=== PATIENT | male | born 1955 | race Caucasian/White ===

== ENCOUNTER 2017-05-05 06:07 | Inpatient (IN) | payer MEDICARE, OTHER ==
[2017-05-05] MEDS ORDERED: Povidone-Iodine 10% Soln 118.25 ML Bottle ONE (06:28)
[2017-05-05] MEDS ORDERED: Thrombin (Bovine) 5,000 Unit Kit ONE ×2 (06:28→08:02)
[2017-05-05] MEDS ORDERED: Lactated Ringers 1,000 ML IV SCH (06:45)
[2017-05-05] MEDS ORDERED: Clindamycin Phosphate 900 MG in Sodium Chloride 0.9% 100 ML IV ONE (06:45)
[2017-05-05] MEDS ORDERED: Succinylcholine/Normal Saline 200 MG/10 ML Syringe ONE (07:10)
[2017-05-05] MEDS ORDERED: fentaNYL 250 MCG/5 ML SDV ONE ×4 (07:10→13:25)
[2017-05-05] MEDS ORDERED: Dexamethasone 4 MG/ML SDV ONE (07:10)
[2017-05-05] MEDS ORDERED: Ondansetron 4 MG/2 ML SDV ONE (07:10)
[2017-05-05] MEDS ORDERED: Neostigmine Methylsulfate 1 MG/ML 5 ML Syringe ONE (07:10)
[2017-05-05] MEDS ORDERED: Rocuronium 50 MG/5 ML Vial ONE ×2 (07:10→08:30)
[2017-05-05] MEDS ORDERED: Propofol 200 MG/20 ML SDV ONE ×3 (07:10→14:02)
[2017-05-05] MEDS ORDERED: Midazolam 1 MG/ML 2 ML SDV ONE (07:12)
[2017-05-05] MEDS ORDERED: Tranexamic Acid 3,000 MG, Sodium Chloride 0.9% 100 ML TOP SCH ×2 (08:00)
[2017-05-05] MEDS ORDERED: Ketamine 500 MG/5 ML MDV IV SCH (08:30)
[2017-05-05] MEDS ORDERED: Lactated Ringers 1,000 ML ONE ×4 (10:01→14:23)
[2017-05-05] MEDS ORDERED: Sodium Chloride 0.9% 500 ML ONE (12:08)
[2017-05-05] MEDS: Ropivacaine 49.25 ML, Ketorolac 30 MG, EPINEPHrine 0.5 MG, cloNIDine 80 MCG, Sodium Chl... INJECT ONE ×10 (15:10→20:30)
[2017-05-05] MEDS ORDERED: Magnesium Hydroxide 400 MG/5 ML Susp 30 ML Cup PO PRN (15:54)
[2017-05-05] MEDS ORDERED: Naloxone 0.4 MG/ML SDV IVPUSH PRN (15:54)
[2017-05-05] MEDS ORDERED: Sennosides 8.6 MG Tab PO PRN (15:54)
[2017-05-05] MEDS ORDERED: Acetaminophen 1,000 MG in Premix Bag 1 BAG IV PRN (15:54)
[2017-05-05] MEDS ORDERED: Bisacodyl 10 MG Supp RECTAL PRN (15:54)
[2017-05-05] MEDS ORDERED: Aluminum Hydroxide/Magnesium Hydroxide/Simethicone Susp 30 ML Cup PO PRN (15:54)
[2017-05-05] MEDS: Dexamethasone 4 MG/ML SDV IVPUSH SCH ×2 (18:50→23:34)
[2017-05-05] MEDS: HYDROmorphone 1 MG/ML Syringe IVPUSH PRN (20:29)
--- NOTE | 2017-05-05 22:40 | OR ---
DATE OF PROCEDURE: 05/05/2017 PREOPERATIVE DIAGNOSIS: Lumbar stenosis L1 through S1. POSTOPERATIVE DIAGNOSIS: Lumbar stenosis L1 through S1. PROCEDURE: 1. Transforaminal lumbar interbody fusion, L1-L2, L2-L3, L3-L4, L4-L5 and L5-S1. 2. Primary laminectomy at L1-L2 and L2-L3. 3. Revision laminectomy L3-L4, L4-L5, and L5-S1. 4. Full facetectomies on the right at L1-L2, L2-L3, L3-L4, L4-L5 and L5-S1. 5. Use of operating microscope. 6. Interbody placement at L1-L2, L2-L3, L3-L4, L4-L5, and L5-S1. 7. Segmental instrumentation L1 through S1. ANESTHESIA: General endotracheal intubation. FLUID: Lactated Ringer solution. ESTIMATED BLOOD LOSS: 2400 mL. COMPLICATIONS: None. SPECIMEN: None. DISCHARGE DISPOSITION: Stable to PACU. INDICATIONS FOR THE PROCEDURE: The patient was seen preoperatively in the clinic. He has had a primary previous L3 through S1 laminectomy. He was found to have not only central stenosis remained most of those levels, but as well as new central stenosis at L1-L2 and L2- L3. He also had right-sided radiculopathy. He had bilateral severe foraminal stenosis, which was worse on the right than the left at L1 through S1. Preoperative imaging confirmed the above-mentioned diagnosis. Risks and benefits of the procedure were explained to the patient. Informed consent was obtained. DETAILS OF PROCEDURE: The patient was seen preoperatively by myself and Anesthesia staff in the preoperative holding area, where the operative site was marked. He was brought to the operative suite by the Anesthesia staff, where general anesthesia was administered. A sterile Johnson catheter was placed. The fluoroscopy unit as well as the operating microscope was draped in a sterile manner. Neuromonitoring leads were placed and found to be normal at baseline. He was then flipped into a supine position on a [place] table. All extremities found to be well padded. The back was then prepped and draped in a sterile manner. Time- out was called identifying the correct patient, the correct procedure, the correct site, and antibiotics had been with appropriate period of time. The fluoroscopy unit was used to identify the pedicles all of L1 through S1 on AP and lateral, and then a midline incision was made over the spinous processes of L1 through S1, although spinous processes were absent at L3, L4, and L5. This was carried down to the fascia. Bleeding was controlled with Bovie electrocautery, bipolar electrocautery and Aquamantys 5.0 unit throughout the case. Deep dissection was carried down over the spinous processes of L1 and L2 with the respective lamina, facets, and transverse processes. I then very carefully dissected down the midline L3 through S1 and then went laterally toward the facets in order to avoid any possible exposed dura. There were several areas throughout the previous laminectomy that were either still present from minimal laminectomy or they had grown back in over the years. The facets and transverse processes were dissected and identified. The 75 mm VersaTREK blades were entered into incision and used for retraction. Bleeding was again controlled, we used FloSeal, thrombin soaked Gelfoam and Surgicel for hemostasis in addition to cautery. I then placed my screws on the left at L1 through S1 and took pictures. The method of which was done as to drill out the facets and then make a starting point, then used the PediGuard Unit followed by pedicle probe, followed by tapping 1.2 mm under followed by pedicle probe again and then screw placement. I then completed this on the right side. The screws were then tested all were found to be a least 25 or above on neuro monitoring. We then did the full laminectomy at L1-2 and L2-3. This was done by removing this spinous processes saving all bone for graft and then using a high-speed drill over the lamina and then removing the lamina en bloc. The remaining facetectomies including the L1-L2 and L2-L3 were done by several different methods depending on what work does. At times, I would go medial and then undercut the lamina and then feel the foramina and then cut out laterally and as much as I could remove the facet en bloc. At other times, I would go from the outside and through the foramina, but in any case, I did do full facetectomies and visualized all the nerve roots at every level. I started at the L4-5 level for interbody placement, the method by which this was done had to use an electrocautery unit down around the superior edge of the pedicle and then identified the disk space using a #7 shaver then protecting the dura enter the disk space with sequential shaving from 7 up to 10, often we would stop at 8. The patient was very stiff during the diskectomies, which were done and very little disk material was removed, which was expected. We inserted our interbody device and then expanded and all antibodies were driven as far as possible to the anterior endplate without breaching the anterior longitudinal ligament. The last interbody place was at L1, this was protected with a #1 [place]. There was an incidental durotomy at the axilla and just caudal to the axilla of the root, where the lateral aspect of the dura meets the anterior part of the dura. There was no cerebrospinal fluid loss, I suspect that part of the arachnoid layer was protecting the nerve roots at that level. We are certainly very lateral and I took care not to retract any medial in order to protect the cauda equina. We did this using the operating microscope and 7-0 Laporte-Warren suture. After the suture closure, I performed a Valsalva, which did not show any cerebrospinal fluid leak. Nevertheless, at the base of the posterior vertebral body, I did place DuraGen and then I placed DuraGen over my sutures and then I placed DuraSeal over this laterally. After this had been completed, I performed another Valsalva and one at the end of the procedure, and there was no cerebrospinal fluid leak. We then focused on preparing for grafting, so we irrigated with 3 L of Betadine infused irrigation. I then decorticated the transverse processes in the facets on the left and then tacked the posterolateral gutters with autograft obtained from the laminectomies as well as spinous processes remaining. Please note that at the L3 through S1 levels, I was able to do a facetectomy by drilling laterally and then elevating the remaining lamina en bloc, this actually aided in the facetectomy as well and looked very good, no durotomy was encountered at those levels. We then placed our 150 mm rods, which I did bend for an increased lordosis and then tightened those down with our nuts. Please note that with the screws placed, we used Creo AMP screws. The screws were placed, so I could distract when in entering the disk space and then I would place a tool upon prior to placement of the bebeto. After all of our locking nuts were torqued to specification, I then took final films, we then closed the deep fascia with #2 locking Vicryl, followed by #2 running Vicryl, followed by another liter of Betadine effused irrigation, followed by a multiple 0 Vicryl interrupted sutures, followed by 2-0 Vicryl interrupted sutures, followed by Monocryl and Dermabond, followed by sterile dressing. The patient was then flipped on to the supine position on hospital bed. Neuromonitoring leads were taken off, they were normal at closing and then transferred to the PACU in stable condition. Dmitry Childress DO /[id number] MTDD
[2017-05-06] MEDS: HYDROmorphone 1 MG/ML Syringe IVPUSH PRN ×5 (03:09→23:48)
[2017-05-06] MEDS: Dexamethasone 4 MG/ML SDV IVPUSH SCH ×3 (04:42→20:25)
[2017-05-06] MEDS ORDERED: Gadoteridol 279.3 MG/ML 20 ML SDV IV SCH (13:00)
--- NOTE | 2017-05-06 13:55 | PCM.PN ---
- General Info Date of Service: 05/06/17 Functional Status: Reports: pain controlled, new symptoms - Review of Systems General: Reports: No Symptoms HEENT: Reports: no symptoms Pulmonary: Reports: no symptoms Cardiovascular: Reports: No Symptoms Gastrointestinal: Reports: No symptoms Genitourinary: Reports: no symptoms Musculoskeletal: Reports: back pain Skin: Reports: no symptoms Neurological: Reports: Numbness, Tingling, Weakness Psychiatric: Reports: no symptoms - Patient Data Vitals - most recent: Last Vital Signs Temp 98.7 F 05/06/17 11:43 Pulse 84 05/06/17 11:43 Resp 16 05/06/17 11:43 BP 132/82 05/06/17 11:43 Pulse Ox 97 05/06/17 11:43 Weight - most recent: 207 lb 12.8 oz I&O - last 24 hours: Intake & Output 05/05/17 05/06/17 05/06/17 22:59 06:59 14:59 Intake Total 280 1080 Output Total 230 285 Balance 50 795 Lab Results last 24 hrs: Laboratory Results - last 24 hr 05/04/17 05/05/17 05/06/17 Range/Units 09:20 16:42 05:09 WBC 12.2 H (4.5-11.0) K/uL RBC 3.47 L (4.30-5.90) M/uL Hgb 10.0 L 9.2 L (12.0-15.0) g/dL Hct 32.3 L 28.2 L (40.0-54.0) % MCV 81 (80-98) fL MCH 27 (27-31) pg MCHC 33 (32-36) % Plt Count 249 (150-400) K/uL Neut % (Auto) 88 H (36-66) % Lymph % (Auto) 5 L (24-44) % [place] % (Auto) 7 H (2-6) % Eos % (Auto) 1 L (2-4) % Baso % (Auto) 0 (0-1) % Sodium (140-148) mmol/L Potassium (3.6-5.2) mmol/L Chloride (100-108) mmol/L Carbon Dioxide (21-32) mmol/L Anion Gap (5.0-14.0) mmol/L BUN (7-18) mg/dL Creatinine (0.8-1.3) mg/dL Est Cr Clr Drug Dosing mL/min Estimated GFR (MDRD) (>60) Glucose (74-106) mg/dL Calcium (8.5-10.1) mg/dL Blood Type A POSITIVE Gel Antibody Screen Negative Crossmatch See Detail 05/06/17 Range/Units 05:09 WBC (4.5-11.0) K/uL RBC (4.30-5.90) M/uL Hgb (12.0-15.0) g/dL Hct (40.0-54.0) % MCV (80-98) fL MCH (27-31) pg MCHC (32-36) % Plt Count (150-400) K/uL Neut % (Auto) (36-66) % Lymph % (Auto) (24-44) % [place] % (Auto) (2-6) % Eos % (Auto) (2-4) % Baso % (Auto) (0-1) % Sodium 135 L (140-148) mmol/L Potassium 4.8 (3.6-5.2) mmol/L Chloride 104 (100-108) mmol/L Carbon Dioxide 22 (21-32) mmol/L Anion Gap 13.8 (5.0-14.0) mmol/L BUN 24 H D (7-18) mg/dL Creatinine 1.6 H (0.8-1.3) mg/dL Est Cr Clr Drug Dosing 54.56 mL/min Estimated GFR (MDRD) 44 L (>60) Glucose 156 H (74-106) mg/dL Calcium 8.2 L (8.5-10.1) mg/dL Blood Type Gel Antibody Screen Crossmatch Med Orders - Current: Current Medications Al Hydroxide/Mg Hydroxide (Mag-Al Plus) 15 ml PO Q4H PRN PRN Reason: Indigestion Bisacodyl (Dulcolax) 10 mg RECTAL DAILY PRN PRN Reason: Constipation Diazepam (Valium) 5 mg IVPUSH Q6H PRN PRN Reason: Spasms Diphenhydramine HCl (Benadryl) 25 mg PO Q4H PRN PRN Reason: Itching Hydromorphone HCl (Dilaudid) 1 mg IVPUSH Q2H PRN PRN Reason: Pain Last Admin: 05/06/17 12:15 Dose: 1 mg Lactated Ringer's (Ringers, Lactated) 1,000 mls @ 0 mls/hr IV ASDIRECTED [facility] PRN Reason: KVO Last Admin: 05/05/17 07:10 Dose: 25 mls/hr Acetaminophen 1,000 mg/ Premix 100 mls @ 400 mls/hr IV Q6H PRN PRN Reason: Pain Stop: 05/06/17 15:55 Last Admin: 05/06/17 00:12 Dose: 400 mls/hr Clindamycin Phosphate 600 mg/ (Sodium Chloride) 54 mls @ 100 mls/hr IV Q8H [facility] Last Admin: 05/06/17 09:05 Dose: 100 mls/hr Magnesium Hydroxide (Milk Of Magnesia) 30 ml PO DAILY PRN PRN Reason: Constipation Naloxone HCl (Narcan) 0.2 mg IVPUSH ASDIRECTED PRN PRN Reason: Oversedation Stop: 05/06/17 15:00 Oxycodone/Acetaminophen (Percocet 325-5 Mg) 1 tab PO Q4H PRN PRN Reason: Pain Senna (Senna) 8.6 mg PO BID PRN PRN Reason: Constipation Zolpidem Tartrate (Ambien) 5 mg PO BEDTIME PRN PRN Reason: Sleep Discontinued Medications Tranexamic Acid 3,000 mg/ (Sodium Chloride 100 ml) 0 mg TOP ASDIRECTED [facility] Stop: 05/05/17 08:01 Last Admin: 05/05/17 09:04 Dose: 120 bag Ropivacaine 49.25 ml/Ketorolac Tromethamine 30 mg/Epinephrine HCl 0.5 mg/ Clonidine HCl 80 mcg/ Sodium Chloride 48.45 ml 0 ml INJECT ONETIME ONE Stop: 05/05/17 14:46 Last Admin: 05/05/17 20:30 Dose: Not Given Dexamethasone (Dexamethasone) Confirm Administered Dose 4 mg .ROUTE .STK-MED ONE Stop: 05/05/17 07:11 Dexamethasone (Dexamethasone) 8 mg IVPUSH Q6H [facility] Stop: 05/06/17 11:01 Last Admin: 05/06/17 04:42 Dose: 8 mg Fentanyl (Sublimaze) Confirm Administered Dose 250 mcg .ROUTE .STK-MED ONE Stop: 05/05/17 07:11 Fentanyl (Sublimaze) Confirm Administered Dose 250 mcg .ROUTE .STK-MED ONE Stop: 05/05/17 08:21 Fentanyl (Sublimaze) Confirm Administered Dose 250 mcg .ROUTE .ST-MED ONE Stop: 05/05/17 11:43 Fentanyl (Sublimaze) Confirm Administered Dose 250 mcg .ROUTE .ST-MED ONE Stop: 05/05/17 13:26 Gadoteridol (Prohance) 20 ml IV . DIRECTED [facility] Stop: 05/06/17 13:01 Last Admin: 05/06/17 13:40 Dose: 20 ml Glycopyrrolate () Confirm Administered Dose 1 mg .ROUTE .ST-MED ONE Stop: 05/05/17 07:11 Clindamycin Phosphate 900 mg/ (Sodium Chloride) 106 mls @ 200 mls/hr IV ONETIME ONE Stop: 05/05/17 07:16 Last Admin: 05/05/17 07:44 Dose: 200 mls/hr Ketamine HCl 100 mg/ Sodium (Chloride) 100 mls @ 22 mls/hr IV ASDIRECTED [facility] Lactated Ringer's (Ringers, Lactated) Confirm Administered Dose 1,000 mls @ as directed .ROUTE .ST-MED ONE Stop: 05/05/17 10:02 Lactated Ringer's (Ringers, Lactated) Confirm Administered Dose 1,000 mls @ as directed .ROUTE .ST-MED ONE Stop: 05/05/17 10:03 Lactated Ringer's (Ringers, Lactated) Confirm Administered Dose 1,000 mls @ as directed .ROUTE .ST-MED ONE Stop: 05/05/17 11:15 Sodium Chloride (Normal Saline) Confirm Administered Dose 500 mls @ as directed .ROUTE .ST-MED ONE Stop: 05/05/17 12:09 Lactated Ringer's (Ringers, Lactated) Confirm Administered Dose 1,000 mls @ as directed .ROUTE .ST-MED ONE Stop: 05/05/17 14:24 Ketamine HCl (Ketalar) 38 mg IV ASDIRECTED [facility] Midazolam HCl (Versed 1 Mg/Ml) Confirm Administered Dose 2 mg .ROUTE .STK-MED ONE Stop: 05/05/17 07:13 Neostigmine Methylsulfate (Neostigmine) Confirm Administered Dose 5 mg .ROUTE .ST-MED ONE Stop: 05/05/17 07:11 Ondansetron HCl (Zofran) Confirm Administered Dose 4 mg .ROUTE .STK-MED ONE Stop: 05/05/17 07:11 Povidone Iodine (Betadine 10% Soln) Confirm Administered Dose 1 ml .ROUTE .STK- MED ONE Stop: 05/05/17 06:29 Last Admin: 05/05/17 14:02 Dose: 1 ml Propofol (Diprivan 20 Ml) Confirm Administered Dose 200 mg .ROUTE .STK-MED ONE Stop: 05/05/17 07:11 Propofol (Diprivan 20 Ml) Confirm Administered Dose 600 mg .ROUTE .STK-MED ONE Stop: 05/05/17 14:03 Propofol (Diprivan 20 Ml) Confirm Administered Dose 600 mg .ROUTE .STK-MED ONE Stop: 05/05/17 14:03 Rocuronium [place] (Zemuron) Confirm Administered Dose 50 mg .ROUTE .STK-MED ONE Stop: 05/05/17 07:11 Rocuronium [place] (Zemuron) Confirm Administered Dose 50 mg .ROUTE .STK-MED ONE Stop: 05/05/17 08:31 Succinylcholine Chloride (Succinylcholine In Ns Pf) Confirm Administered Dose 200 mg .ROUTE .STK-MED ONE Stop: 05/05/17 07:11 Thrombin (Thrombin-Jmi) Confirm Administered Dose 15,000 unit .ROUTE .STK-MED ONE Stop: 05/05/17 06:29 Last Admin: 05/05/17 14:04 Dose: 15,000 unit Thrombin (Thrombin-Jmi) Confirm Administered Dose 15,000 unit .ROUTE .STK-MED ONE Stop: 05/05/17 08:03 Last Admin: 05/05/17 14:04 Dose: 5,000 unit - Exam General: alert, oriented HEENT: Pupils equal, Pupils reactive Back Exam: Paraspinal Tenderness Extremities: no edema Skin: warm, dry, intact Wound/Incisions: healing well, dressing dry and intact, no drainage Neurological: other Psy/Mental Status: alert, normal affect Physical Findings Comments:: RLE: Ankle plantarfexion 4/5, dorsiflexion 3+/5. Gastrocnemius 2/5, hip flexors 2/5,quadriceps 2/5,knee flexors 2/5. Full sensation present in bilateral lower extremities some numbness anterior thigh no saddle anesthesia - Problem List & Annotations (1) Foraminal stenosis of lumbar region SNOMED Code(s): 58093768 Code(s): M99.83 - OTHER BIOMECHANICAL LESIONS OF LUMBAR REGION Status: Acute Current Visit: No (2) Spinal stenosis of lumbar region SNOMED Code(s): 50977780 Code(s): M48.06 - SPINAL STENOSIS, LUMBAR REGION Status: Acute Current Visit: No - Problem List Review Problem List Initiated/Reviewed/Updated: Yes - My Orders Last 24 Hours: My Active Orders 05/05/17 15:54 Patient Status [ADT] Routine Acetaminophen [Ofirmev] 1,000 mg Premix Bag 1 bag IV Q6H Acetaminophen/oxyCODONE [Percocet 325-5 MG] 1 tab PO Q4H PRN Alum Hydrox/Mag Hydrox/Simeth [Mag-Al Plus] 15 ml PO Q4H PRN Bisacodyl [Dulcolax] 10 mg RECTAL DAILY PRN Diazepam [Valium] 5 mg IVPUSH Q6H PRN HYDROmorphone [Dilaudid] 1 mg IVPUSH Q2H PRN Magnesium Hydroxide [Milk of Magnesia] 30 ml PO DAILY PRN Naloxone [Narcan] 0.2 mg IVPUSH ASDIRECTED PRN Sennosides [Senna] 8.6 mg PO BID PRN Zolpidem [Ambien] 5 mg PO BEDTIME PRN diphenhydrAMINE [Benadryl] 25 mg PO Q4H PRN 05/05/17 15:55 Neurovascular Check [RC] Q1H Oxygen Therapy [RC] Q12H Turn, Cough, Deep Breathe [RC] .PRN Encourage Fluids [OM.PC] Routine 05/05/17 16:00 Clindamycin Phosphate [Cleocin] 600 mg Sodium Chloride 0.9% [Normal Saline] 50 ml IV Q8H 05/05/17 16:02 Consult to Physician [CONS] Routine 05/05/17 16:03 Notify Provider Consults [RC] ASDIRECTED 05/06/17 09:07 Lumbar Spine wo Cont [CT] Routine 05/06/17 09:44 Lumbar Spine Comp w wo Cont [MR] Routine 05/07/17 05:15 BASIC METABOLIC PANEL,BMP [CHEM] DAILY CBC WITH AUTO DIFF [HEME] DAILY 07/10/17 05:15 BASIC METABOLIC PANEL,BMP [CHEM] DAILY CBC WITH AUTO DIFF [HEME] DAILY - Plan Plan:: A: POD 1 L1-S1 TLIF. New weakness RLE with full sensation P: continue dexamethasone. Obtained CT which shows no areas of significant stenosis or compression Obtaining MRI with and without contrast. If there is an epidural hematoma present will take back to decompress. If not, will continue with dexamethasone. Spoke with patients significant other regarding cautiously optomistic prognosis of return of motor function. Explained will treat carefully non-operatively at this time and monitor for progress with possible need for adjunct faculty for medical terminology rehab. Patient did state to significant other he felt there was improvement in right foot ROM.
[2017-05-06] MEDS: Acetaminophen/oxyCODONE 325-5 MG Tab PO PRN ×3 (15:01→22:49)
[2017-05-06] MEDS ORDERED: Dexamethasone 4 MG/ML SDV IVPUSH SCH (19:00)
[2017-05-06] MEDS: Zolpidem 5 MG Tab PO PRN (20:32)
[2017-05-07] MEDS: Dexamethasone 4 MG/ML SDV IVPUSH SCH ×4 (01:57→19:47)
[2017-05-07] MEDS: Acetaminophen/oxyCODONE 325-5 MG Tab PO PRN ×4 (04:48→22:31)
[2017-05-07] MEDS: HYDROmorphone 1 MG/ML Syringe IVPUSH PRN ×3 (06:15→20:05)
--- NOTE | 2017-05-07 11:07 | PCM.PN ---
- General Info Date of Service: 05/07/17 Functional Status: Reports: pain controlled, tolerating diet - Review of Systems General: Reports: No Symptoms HEENT: Reports: no symptoms Pulmonary: Reports: no symptoms Cardiovascular: Reports: No Symptoms Gastrointestinal: Reports: No symptoms Genitourinary: Reports: no symptoms Musculoskeletal: Reports: shoulder pain, leg pain Skin: Reports: no symptoms Neurological: Reports: No Symptoms, Numbness, Tingling, Difficulty Walking, Weakness, Gait Disturbance Psychiatric: Reports: no symptoms - Patient Data Vitals - most recent: Last Vital Signs Temp 96.3 F 05/07/17 07:23 Pulse 85 05/07/17 07:23 Resp 16 05/07/17 07:23 BP 137/80 05/07/17 07:23 Pulse Ox 96 05/07/17 07:23 Weight - most recent: 207 lb 12.8 oz I&O - last 24 hours: Intake & Output 05/06/17 05/07/17 05/07/17 22:59 06:59 14:59 Intake Total 1657 320 174 Output Total 2000 4212 625 Balance -245 -2021 -271 Lab Results last 24 hrs: Laboratory Results - last 24 hr 05/07/17 05/07/17 Range/Units 05:30 05:30 WBC 14.8 H (4.5-11.0) K/uL RBC 3.21 L (4.30-5.90) M/uL Hgb 8.4 L (12.0-15.0) g/dL Hct 26.2 L (40.0-54.0) % MCV 82 (80-98) fL MCH 26 L (27-31) pg MCHC 32 (32-36) % Plt Count 282 (150-400) K/uL Neut % (Auto) 91 H (36-66) % Lymph % (Auto) 4 L (24-44) % [place] % (Auto) 5 (2-6) % Eos % (Auto) 0 L (2-4) % Baso % (Auto) 0 (0-1) % Sodium 138 L (140-148) mmol/L Potassium 4.6 (3.6-5.2) mmol/L Chloride 105 (100-108) mmol/L Carbon Dioxide 26 (21-32) mmol/L Anion Gap 11.6 (5.0-14.0) mmol/L BUN 22 H (7-18) mg/dL Creatinine 1.2 (0.8-1.3) mg/dL Est Cr Clr Drug Dosing 72.75 mL/min Estimated GFR (MDRD) > 60 (>60) Glucose 138 H (74-106) mg/dL Calcium 8.8 (8.5-10.1) mg/dL Creatine Kinase 3322 H (39-308) U/L Med Orders - Current: Current Medications Al Hydroxide/Mg Hydroxide (Mag-Al Plus) 15 ml PO Q4H PRN PRN Reason: Indigestion Bisacodyl (Dulcolax) 10 mg RECTAL DAILY PRN PRN Reason: Constipation Dexamethasone (Dexamethasone) 12 mg IVPUSH Q6H [facility] Last Admin: 05/07/17 08:29 Dose: 12 mg Diazepam (Valium) 5 mg IVPUSH Q6H PRN PRN Reason: Spasms Diphenhydramine HCl (Benadryl) 25 mg PO Q4H PRN PRN Reason: Itching Hydromorphone HCl (Dilaudid) 1 mg IVPUSH Q2H PRN PRN Reason: Pain Last Admin: 05/07/17 06:15 Dose: 1 mg Lactated Ringer's (Ringers, Lactated) 1,000 mls @ 0 mls/hr IV ASDIRECTED [facility] PRN Reason: KVO Last Admin: 05/05/17 07:10 Dose: 25 mls/hr Clindamycin Phosphate 600 mg/ (Sodium Chloride) 54 mls @ 100 mls/hr IV Q8H [facility] Last Admin: 05/07/17 08:00 Dose: 100 mls/hr Magnesium Hydroxide (Milk Of Magnesia) 30 ml PO DAILY PRN PRN Reason: Constipation Oxycodone/Acetaminophen (Percocet 325-5 Mg) 1 tab PO Q4H PRN PRN Reason: Pain Last Admin: 05/07/17 10:56 Dose: 1 tab Senna (Senna) 8.6 mg PO BID PRN PRN Reason: Constipation Zolpidem Tartrate (Ambien) 5 mg PO BEDTIME PRN PRN Reason: Sleep Last Admin: 05/06/17 20:32 Dose: 5 mg Discontinued Medications Tranexamic Acid 3,000 mg/ (Sodium Chloride 100 ml) 0 mg TOP ASDIRECTED [facility] Stop: 05/05/17 08:01 Last Admin: 05/05/17 09:04 Dose: 120 bag Ropivacaine 49.25 ml/Ketorolac Tromethamine 30 mg/Epinephrine HCl 0.5 mg/ Clonidine HCl 80 mcg/ Sodium Chloride 48.45 ml 0 ml INJECT ONETIME ONE Stop: 05/05/17 14:46 Last Admin: 05/05/17 20:30 Dose: Not Given Dexamethasone (Dexamethasone) Confirm Administered Dose 4 mg .ROUTE .STK-MED ONE Stop: 05/05/17 07:11 Dexamethasone (Dexamethasone) 8 mg IVPUSH Q6H [facility] Stop: 05/06/17 11:01 Last Admin: 05/06/17 14:17 Dose: 8 mg Dexamethasone (Dexamethasone) 15 mg IVPUSH Q6H [facility] Last Admin: 05/06/17 20:16 Dose: Not Given Fentanyl (Sublimaze) Confirm Administered Dose 250 mcg .ROUTE .STK-MED ONE Stop: 05/05/17 07:11 Fentanyl (Sublimaze) Confirm Administered Dose 250 mcg .ROUTE .STK-MED ONE Stop: 05/05/17 08:21 Fentanyl (Sublimaze) Confirm Administered Dose 250 mcg .ROUTE .STK-MED ONE Stop: 05/05/17 11:43 Fentanyl (Sublimaze) Confirm Administered Dose 250 mcg .ROUTE .STK-MED ONE Stop: 05/05/17 13:26 Gadoteridol (Prohance) 20 ml IV . DIRECTED [facility] Stop: 05/06/17 13:01 Last Admin: 05/06/17 13:40 Dose: 20 ml Glycopyrrolate () Confirm Administered Dose 1 mg .ROUTE .STK-MED ONE Stop: 05/05/17 07:11 Clindamycin Phosphate 900 mg/ (Sodium Chloride) 106 mls @ 200 mls/hr IV ONETIME ONE Stop: 05/05/17 07:16 Last Admin: 05/05/17 07:44 Dose: 200 mls/hr Ketamine HCl 100 mg/ Sodium (Chloride) 100 mls @ 22 mls/hr IV ASDIRECTED [facility] Lactated Ringer's (Ringers, Lactated) Confirm Administered Dose 1,000 mls @ as directed .ROUTE .STK-MED ONE Stop: 05/05/17 10:02 Lactated Ringer's (Ringers, Lactated) Confirm Administered Dose 1,000 mls @ as directed .ROUTE .ST-MED ONE Stop: 05/05/17 10:03 Lactated Ringer's (Ringers, Lactated) Confirm Administered Dose 1,000 mls @ as directed .ROUTE .ST-MED ONE Stop: 05/05/17 11:15 Sodium Chloride (Normal Saline) Confirm Administered Dose 500 mls @ as directed .ROUTE .ST-MED ONE Stop: 05/05/17 12:09 Lactated Ringer's (Ringers, Lactated) Confirm Administered Dose 1,000 mls @ as directed .ROUTE .ST-MED ONE Stop: 05/05/17 14:24 Acetaminophen 1,000 mg/ Premix 100 mls @ 400 mls/hr IV Q6H PRN PRN Reason: Pain Stop: 05/06/17 15:55 Last Admin: 05/06/17 00:12 Dose: 400 mls/hr Ketamine HCl (Ketalar) 38 mg IV ASDIRECTED [facility] Midazolam HCl (Versed 1 Mg/Ml) Confirm Administered Dose 2 mg .ROUTE .ST-MED ONE Stop: 05/05/17 07:13 Naloxone HCl (Narcan) 0.2 mg IVPUSH ASDIRECTED PRN PRN Reason: Oversedation Stop: 05/06/17 15:00 Neostigmine Methylsulfate (Neostigmine) Confirm Administered Dose 5 mg .ROUTE .ST-MED ONE Stop: 05/05/17 07:11 Ondansetron HCl (Zofran) Confirm Administered Dose 4 mg .ROUTE .ST-MED ONE Stop: 05/05/17 07:11 Povidone Iodine (Betadine 10% Soln) Confirm Administered Dose 1 ml .ROUTE .ST- MED ONE Stop: 05/05/17 06:29 Last Admin: 05/05/17 14:02 Dose: 1 ml Propofol (Diprivan 20 Ml) Confirm Administered Dose 200 mg .ROUTE .ST-MED ONE Stop: 05/05/17 07:11 Propofol (Diprivan 20 Ml) Confirm Administered Dose 600 mg .ROUTE .STK-MED ONE Stop: 05/05/17 14:03 Propofol (Diprivan 20 Ml) Confirm Administered Dose 600 mg .ROUTE .STK-MED ONE Stop: 05/05/17 14:03 Rocuronium [place] (Zemuron) Confirm Administered Dose 50 mg .ROUTE .STK-MED ONE Stop: 05/05/17 07:11 Rocuronium [place] (Zemuron) Confirm Administered Dose 50 mg .ROUTE .STK-MED ONE Stop: 05/05/17 08:31 Succinylcholine Chloride (Succinylcholine In Ns Pf) Confirm Administered Dose 200 mg .ROUTE .STK-MED ONE Stop: 05/05/17 07:11 Thrombin (Thrombin-Jmi) Confirm Administered Dose 15,000 unit .ROUTE .STK-MED ONE Stop: 05/05/17 06:29 Last Admin: 05/05/17 14:04 Dose: 15,000 unit Thrombin (Thrombin-Jmi) Confirm Administered Dose 15,000 unit .ROUTE .STK-MED ONE Stop: 05/05/17 08:03 Last Admin: 05/05/17 14:04 Dose: 5,000 unit - Exam General: alert, oriented HEENT: Pupils equal, Pupils reactive Neck: supple Lungs: Clear to auscultation Extremities: no edema Peripheral Pulses: 2+: Dorsalis Pedis (R) Skin: warm, dry, intact Wound/Incisions: healing well, dressing dry and intact, no drainage Neurological: other Psy/Mental Status: alert, normal affect, normal mood - Problem List & Annotations (1) Foraminal stenosis of lumbar region SNOMED Code(s): 58673434 Code(s): M99.83 - OTHER BIOMECHANICAL LESIONS OF LUMBAR REGION Status: Acute Current Visit: No (2) Spinal stenosis of lumbar region SNOMED Code(s): 00913524 Code(s): M48.06 - SPINAL STENOSIS, LUMBAR REGION Status: Acute Current Visit: No - Problem List Review Problem List Initiated/Reviewed/Updated: Yes - My Orders Last 24 Hours: My Active Orders 05/06/17 20:00 Dexamethasone 12 mg IVPUSH Q6H 05/06/17 Dinner Regular Diet [DIET] 05/07/17 11:00 OT Evaluation and Treatment [CONS] Routine PT Evaluation and Treatment [CONS] Routine 05/08/17 05:15 BASIC METABOLIC PANEL,BMP [CHEM] DAILY CBC WITH AUTO DIFF [HEME] DAILY CREATINE KINASE,CK [CHEM] DAILY - Plan Plan:: A: POD 2 L1-S1 TLIF. Stronger last evening and unchanged since then P: continue dexamethasone. MRI showed no areas of suspected epidural hematoma. Explained to patient and significant other after reviewing and receiving report yesterday. Spoke with patients significant other and patient regarding cautiously optomistic prognosis of return of motor function. Explained will treat carefully non-operatively at this time and monitor for progress with possible need for layer off rehab. Elevated bed in room. Will try to get in chair today and stand with walker. Bedside commode. PT/OT. Will start 325 mg asa tomorrow for dvt prophylaxis.
--- NOTE | 2017-05-07 12:23 | PCM.PN ---
- General Info Date of Service: 05/07/17 Functional Status: Denies: pain controlled, ambulating - Review of Systems Pulmonary: Denies: shortness of breath Musculoskeletal: Reports: leg pain (right thigh and posterior leg ) Systems Review Comment:: Misael was admitted for a lumbar laminectomy to manage lumbar spinal stenosis. Postoperatively he has had some difficulty with right leg weakness and this morning his CK level was noted to be elevated at 3300. He reports pain in the right leg that radiates to the knee. He is able to wiggle his toes and move his ankle but cannot flex his hip or his knee. CT and MRI yesterday did not show acute pathology. No complaints of shortness of breath. No fevers. - Patient Data Vitals - most recent: Last Vital Signs Temp 36.1 C 05/07/17 12:03 Pulse 88 05/07/17 12:03 Resp 16 05/07/17 12:03 BP 137/83 05/07/17 12:03 Pulse Ox 98 05/07/17 12:03 Weight - most recent: 94.256 kg I&O - last 24 hours: Intake & Output 05/06/17 05/07/17 05/07/17 22:59 06:59 14:59 Intake Total 1657 320 190 Output Total 2000 1500 625 Balance -877 -1826 -187 Lab Results last 24 hrs: Laboratory Results - last 24 hr 05/07/17 05/07/17 Range/Units 05:30 05:30 WBC 14.8 H (4.5-11.0) K/uL RBC 3.21 L (4.30-5.90) M/uL Hgb 8.4 L (12.0-15.0) g/dL Hct 26.2 L (40.0-54.0) % MCV 82 (80-98) fL MCH 26 L (27-31) pg MCHC 32 (32-36) % Plt Count 282 (150-400) K/uL Neut % (Auto) 91 H (36-66) % Lymph % (Auto) 4 L (24-44) % [place] % (Auto) 5 (2-6) % Eos % (Auto) 0 L (2-4) % Baso % (Auto) 0 (0-1) % Sodium 138 L (140-148) mmol/L Potassium 4.6 (3.6-5.2) mmol/L Chloride 105 (100-108) mmol/L Carbon Dioxide 26 (21-32) mmol/L Anion Gap 11.6 (5.0-14.0) mmol/L BUN 22 H (7-18) mg/dL Creatinine 1.2 (0.8-1.3) mg/dL Est Cr Clr Drug Dosing 72.75 mL/min Estimated GFR (MDRD) > 60 (>60) Glucose 138 H (74-106) mg/dL Calcium 8.8 (8.5-10.1) mg/dL Creatine Kinase 3322 H (39-308) U/L Med Orders - Current: Current Medications Al Hydroxide/Mg Hydroxide (Mag-Al Plus) 15 ml PO Q4H PRN PRN Reason: Indigestion Bisacodyl (Dulcolax) 10 mg RECTAL DAILY PRN PRN Reason: Constipation Dexamethasone (Dexamethasone) 12 mg IVPUSH Q6H [facility] Last Admin: 05/07/17 08:29 Dose: 12 mg Diazepam (Valium) 5 mg IVPUSH Q6H PRN PRN Reason: Spasms Diphenhydramine HCl (Benadryl) 25 mg PO Q4H PRN PRN Reason: Itching Gabapentin (Neurontin) 300 mg PO TID [facility] Hydromorphone HCl (Dilaudid) 1 mg IVPUSH Q2H PRN PRN Reason: Pain Last Admin: 05/07/17 06:15 Dose: 1 mg Lactated Ringer's (Ringers, Lactated) 1,000 mls @ 0 mls/hr IV ASDIRECTED [facility] PRN Reason: KVO Last Admin: 05/05/17 07:10 Dose: 25 mls/hr Clindamycin Phosphate 600 mg/ (Sodium Chloride) 54 mls @ 100 mls/hr IV Q8H [facility] Last Admin: 05/07/17 08:00 Dose: 100 mls/hr Magnesium Hydroxide (Milk Of Magnesia) 30 ml PO DAILY PRN PRN Reason: Constipation Oxycodone/Acetaminophen (Percocet 325-5 Mg) 1 tab PO Q4H PRN PRN Reason: Pain Last Admin: 05/07/17 10:56 Dose: 1 tab Senna (Senna) 8.6 mg PO BID PRN PRN Reason: Constipation Zolpidem Tartrate (Ambien) 5 mg PO BEDTIME PRN PRN Reason: Sleep Last Admin: 05/06/17 20:32 Dose: 5 mg Discontinued Medications Tranexamic Acid 3,000 mg/ (Sodium Chloride 100 ml) 0 mg TOP ASDIRECTED [facility] Stop: 05/05/17 08:01 Last Admin: 05/05/17 09:04 Dose: 120 bag Ropivacaine 49.25 ml/Ketorolac Tromethamine 30 mg/Epinephrine HCl 0.5 mg/ Clonidine HCl 80 mcg/ Sodium Chloride 48.45 ml 0 ml INJECT ONETIME ONE Stop: 05/05/17 14:46 Last Admin: 05/05/17 20:30 Dose: Not Given Dexamethasone (Dexamethasone) Confirm Administered Dose 4 mg .ROUTE .STK-MED ONE Stop: 05/05/17 07:11 Dexamethasone (Dexamethasone) 8 mg IVPUSH Q6H [facility] Stop: 05/06/17 11:01 Last Admin: 05/06/17 14:17 Dose: 8 mg Dexamethasone (Dexamethasone) 15 mg IVPUSH Q6H [facility] Last Admin: 05/06/17 20:16 Dose: Not Given Fentanyl (Sublimaze) Confirm Administered Dose 250 mcg .ROUTE .STK-MED ONE Stop: 05/05/17 07:11 Fentanyl (Sublimaze) Confirm Administered Dose 250 mcg .ROUTE .STK-MED ONE Stop: 05/05/17 08:21 Fentanyl (Sublimaze) Confirm Administered Dose 250 mcg .ROUTE .STK-MED ONE Stop: 05/05/17 11:43 Fentanyl (Sublimaze) Confirm Administered Dose 250 mcg .ROUTE .STK-MED ONE Stop: 05/05/17 13:26 Gadoteridol (Prohance) 20 ml IV . DIRECTED [facility] Stop: 05/06/17 13:01 Last Admin: 05/06/17 13:40 Dose: 20 ml Glycopyrrolate () Confirm Administered Dose 1 mg .ROUTE .STK-MED ONE Stop: 05/05/17 07:11 Clindamycin Phosphate 900 mg/ (Sodium Chloride) 106 mls @ 200 mls/hr IV ONETIME ONE Stop: 05/05/17 07:16 Last Admin: 05/05/17 07:44 Dose: 200 mls/hr Ketamine HCl 100 mg/ Sodium (Chloride) 100 mls @ 22 mls/hr IV ASDIRECTED [facility] Lactated Ringer's (Ringers, Lactated) Confirm Administered Dose 1,000 mls @ as directed .ROUTE .STK-MED ONE Stop: 05/05/17 10:02 Lactated Ringer's (Ringers, Lactated) Confirm Administered Dose 1,000 mls @ as directed .ROUTE .STK-MED ONE Stop: 05/05/17 10:03 Lactated Ringer's (Ringers, Lactated) Confirm Administered Dose 1,000 mls @ as directed .ROUTE .STK-MED ONE Stop: 05/05/17 11:15 Sodium Chloride (Normal Saline) Confirm Administered Dose 500 mls @ as directed .ROUTE .STK-MED ONE Stop: 05/05/17 12:09 Lactated Ringer's (Ringers, Lactated) Confirm Administered Dose 1,000 mls @ as directed .ROUTE .STK-MED ONE Stop: 05/05/17 14:24 Acetaminophen 1,000 mg/ Premix 100 mls @ 400 mls/hr IV Q6H PRN PRN Reason: Pain Stop: 05/06/17 15:55 Last Admin: 05/06/17 00:12 Dose: 400 mls/hr Ketamine HCl (Ketalar) 38 mg IV ASDIRECTED [facility] Midazolam HCl (Versed 1 Mg/Ml) Confirm Administered Dose 2 mg .ROUTE .STK-MED ONE Stop: 05/05/17 07:13 Naloxone HCl (Narcan) 0.2 mg IVPUSH ASDIRECTED PRN PRN Reason: Oversedation Stop: 05/06/17 15:00 Neostigmine Methylsulfate (Neostigmine) Confirm Administered Dose 5 mg .ROUTE .STK-MED ONE Stop: 05/05/17 07:11 Ondansetron HCl (Zofran) Confirm Administered Dose 4 mg .ROUTE .STK-MED ONE Stop: 05/05/17 07:11 Povidone Iodine (Betadine 10% Soln) Confirm Administered Dose 1 ml .ROUTE .STK- MED ONE Stop: 05/05/17 06:29 Last Admin: 05/05/17 14:02 Dose: 1 ml Propofol (Diprivan 20 Ml) Confirm Administered Dose 200 mg .ROUTE .STK-MED ONE Stop: 05/05/17 07:11 Propofol (Diprivan 20 Ml) Confirm Administered Dose 600 mg .ROUTE .STK-MED ONE Stop: 05/05/17 14:03 Propofol (Diprivan 20 Ml) Confirm Administered Dose 600 mg .ROUTE .STK-MED ONE Stop: 05/05/17 14:03 Rocuronium [place] (Zemuron) Confirm Administered Dose 50 mg .ROUTE .STK-MED ONE Stop: 05/05/17 07:11 Rocuronium [place] (Zemuron) Confirm Administered Dose 50 mg .ROUTE .STK-MED ONE Stop: 05/05/17 08:31 Succinylcholine Chloride (Succinylcholine In Ns Pf) Confirm Administered Dose 200 mg .ROUTE .STK-MED ONE Stop: 05/05/17 07:11 Thrombin (Thrombin-Jmi) Confirm Administered Dose 15,000 unit .ROUTE .STK-MED ONE Stop: 05/05/17 06:29 Last Admin: 05/05/17 14:04 Dose: 15,000 unit Thrombin (Thrombin-Jmi) Confirm Administered Dose 15,000 unit .ROUTE .STK-MED ONE Stop: 05/05/17 08:03 Last Admin: 05/05/17 14:04 Dose: 5,000 unit - Exam Quality Assessment: No: supplemental oxygen General: alert, oriented, cooperative, mild distress Neck: supple Lungs: Normal respiratory effort Cardiovascular: Regular Rate, Regular Rhythm Abdomen: soft, no distension Extremities: no edema, no cyanosis Skin: warm, dry Neurological: other (can move right leg at ankle and toes but cannot flex right hip or flex right knee on his own ) Psy/Mental Status: alert, normal affect - Problem List Review Problem List Initiated/Reviewed/Updated: Yes - My Orders Last 24 Hours: My Active Orders 05/07/17 12:30 Lactated Ringers [Ringers, Lactated] 1,000 ml IV ASDIRECTED Lactated Ringers [Ringers, Lactated] 1,000 ml IV ASDIRECTED - Plan Plan:: Assessment and plan - Lumbar spinal stenosis status post laminectomy - postop day 2 with residual right leg weakness. CT and MRI reassuring yesterday. -Postoperative cares per orthopedic team Elevated CK level - likely represents mild rhabdomyolysis which is probably traumatic and related to the surgery and the duration of the surgery. He would benefit from some additional fluids to help reduce the risk of kidney injury. Kidney function currently normal. -Lactated Ringer's bolus followed by continuous infusion overnight -Repeat CK and creatinine in the morning Thomas Angulo M.D.
[2017-05-07] MEDS ORDERED: Lactated Ringers 1,000 ML IV SCH (12:30)
[2017-05-07] MEDS: Gabapentin 300 MG Cap PO SCH ×2 (13:06→20:07)
[2017-05-07] MEDS ORDERED: Levofloxacin/Dextrose 5%-Water 150 ML IV SCH (17:00)
[2017-05-07] MEDS: Zolpidem 5 MG Tab PO PRN (22:31)
[2017-05-07] MEDS: Lactated Ringers 1,000 ML IV SCH (22:34)
[2017-05-08] MEDS: Dexamethasone 4 MG/ML SDV IVPUSH SCH ×3 (01:58→13:45)
[2017-05-08] MEDS: Lactated Ringers 1,000 ML IV SCH ×2 (03:44→10:34)
[2017-05-08] MEDS: Acetaminophen/oxyCODONE 325-5 MG Tab PO PRN ×4 (05:55→23:43)
[2017-05-08] MEDS: Gabapentin 300 MG Cap PO SCH ×3 (08:20→21:16)
--- NOTE | 2017-05-08 12:22 | PCM.PN ---
- General Info Date of Service: 05/08/17 Functional Status: Reports: pain controlled, tolerating diet, urinating - Review of Systems General: Reports: Weakness. Denies: Fever, Chills Pulmonary: Reports: no symptoms Cardiovascular: Reports: No Symptoms Gastrointestinal: Reports: No symptoms Neurological: Reports: Difficulty Walking, Weakness (Right leg) Systems Review Comment:: Mr. Slater has been stable since yesterday, vital signs have been within good range and he has remained afebrile. Continues to experience significant weakness in his right leg although does seem to be modestly improved since surgery. Kidney function has remained stable and his CK level has improved from yesterday. - Patient Data Vitals - most recent: Last Vital Signs Temp 97.1 F 05/08/17 10:47 Pulse 90 05/08/17 10:47 Resp 16 05/08/17 10:47 BP 120/74 05/08/17 10:47 Pulse Ox 97 05/08/17 10:47 Weight - most recent: 207 lb 12.8 oz I&O - last 24 hours: Intake & Output 05/07/17 05/08/17 05/08/17 22:59 06:59 14:59 Intake Total 1757 2248 Output Total 650 2800 1450 Balance 1107 -552 -1450 Lab Results last 24 hrs: Laboratory Results - last 24 hr 05/08/17 05/08/17 Range/Units 05:35 05:35 WBC 14.4 H (4.5-11.0) K/uL RBC 3.13 L (4.30-5.90) M/uL Hgb 8.1 L (12.0-15.0) g/dL Hct 25.8 L (40.0-54.0) % MCV 82 (80-98) fL MCH 26 L (27-31) pg MCHC 31 L (32-36) % Plt Count 278 (150-400) K/uL Neut % (Auto) 91 H (36-66) % Lymph % (Auto) 4 L (24-44) % [place] % (Auto) 5 (2-6) % Eos % (Auto) 0 L (2-4) % Baso % (Auto) 0 (0-1) % Sodium 138 L (140-148) mmol/L Potassium 4.6 (3.6-5.2) mmol/L Chloride 106 (100-108) mmol/L Carbon Dioxide 26 (21-32) mmol/L Anion Gap 10.6 (5.0-14.0) mmol/L BUN 23 H (7-18) mg/dL Creatinine 1.0 (0.8-1.3) mg/dL Est Cr Clr Drug Dosing 87.30 mL/min Estimated GFR (MDRD) > 60 (>60) Glucose 127 H (74-106) mg/dL Calcium 8.9 (8.5-10.1) mg/dL Creatine Kinase 2778 H (39-308) U/L Med Orders - Current: Current Medications Al Hydroxide/Mg Hydroxide (Mag-Al Plus) 15 ml PO Q4H PRN PRN Reason: Indigestion Bisacodyl (Dulcolax) 10 mg RECTAL DAILY PRN PRN Reason: Constipation Dexamethasone (Dexamethasone) 12 mg IVPUSH Q6H [facility] Last Admin: 05/08/17 08:20 Dose: 12 mg Diazepam (Valium) 5 mg IVPUSH Q6H PRN PRN Reason: Spasms Diphenhydramine HCl (Benadryl) 25 mg PO Q4H PRN PRN Reason: Itching Gabapentin (Neurontin) 300 mg PO TID [facility] Last Admin: 05/08/17 08:20 Dose: 300 mg Hydromorphone HCl (Dilaudid) 1 mg IVPUSH Q2H PRN PRN Reason: Pain Last Admin: 05/07/17 20:05 Dose: 1 mg Levofloxacin/Dextrose 750 mg/ (Premix) 150 mls @ 100 mls/hr IV Q24H [facility] Magnesium Hydroxide (Milk Of Magnesia) 30 ml PO DAILY PRN PRN Reason: Constipation Last Admin: 05/08/17 08:35 Dose: 30 ml Oxycodone/Acetaminophen (Percocet 325-5 Mg) 1 tab PO Q4H PRN PRN Reason: Pain Last Admin: 05/08/17 05:55 Dose: 1 tab Senna (Senna) 8.6 mg PO BID PRN PRN Reason: Constipation Zolpidem Tartrate (Ambien) 5 mg PO BEDTIME PRN PRN Reason: Sleep Last Admin: 05/07/17 22:31 Dose: 5 mg Discontinued Medications Tranexamic Acid 3,000 mg/ (Sodium Chloride 100 ml) 0 mg TOP ASDIRECTED [facility] Stop: 05/05/17 08:01 Last Admin: 05/05/17 09:04 Dose: 120 bag Ropivacaine 49.25 ml/Ketorolac Tromethamine 30 mg/Epinephrine HCl 0.5 mg/ Clonidine HCl 80 mcg/ Sodium Chloride 48.45 ml 0 ml INJECT ONETIME ONE Stop: 05/05/17 14:46 Last Admin: 05/05/17 20:30 Dose: Not Given Dexamethasone (Dexamethasone) Confirm Administered Dose 4 mg .ROUTE .ST[facility]-MED ONE Stop: 05/05/17 07:11 Dexamethasone (Dexamethasone) 8 mg IVPUSH Q6H [facility] Stop: 05/06/17 11:01 Last Admin: 05/06/17 14:17 Dose: 8 mg Dexamethasone (Dexamethasone) 15 mg IVPUSH Q6H [facility] Last Admin: 05/06/17 20:16 Dose: Not Given Fentanyl (Sublimaze) Confirm Administered Dose 250 mcg .ROUTE .STK-MED ONE Stop: 05/05/17 07:11 Fentanyl (Sublimaze) Confirm Administered Dose 250 mcg .ROUTE .STK-MED ONE Stop: 05/05/17 08:21 Fentanyl (Sublimaze) Confirm Administered Dose 250 mcg .ROUTE .STK-MED ONE Stop: 05/05/17 11:43 Fentanyl (Sublimaze) Confirm Administered Dose 250 mcg .ROUTE .STK-MED ONE Stop: 05/05/17 13:26 Gadoteridol (Prohance) 20 ml IV . DIRECTED [facility] Stop: 05/06/17 13:01 Last Admin: 05/06/17 13:40 Dose: 20 ml Glycopyrrolate () Confirm Administered Dose 1 mg .ROUTE .STK-MED ONE Stop: 05/05/17 07:11 Clindamycin Phosphate 900 mg/ (Sodium Chloride) 106 mls @ 200 mls/hr IV ONETIME ONE Stop: 05/05/17 07:16 Last Admin: 05/05/17 07:44 Dose: 200 mls/hr Lactated Ringer's (Ringers, Lactated) 1,000 mls @ 0 mls/hr IV ASDIRECTED [facility] PRN Reason: KVO Last Admin: 05/05/17 07:10 Dose: 25 mls/hr Ketamine HCl 100 mg/ Sodium (Chloride) 100 mls @ 22 mls/hr IV ASDIRECTED [facility] Lactated Ringer's (Ringers, Lactated) Confirm Administered Dose 1,000 mls @ as directed .ROUTE .[facility] ONE Stop: 05/05/17 10:02 Lactated Ringer's (Ringers, Lactated) Confirm Administered Dose 1,000 mls @ as directed .ROUTE .[facility] ONE Stop: 05/05/17 10:03 Lactated Ringer's (Ringers, Lactated) Confirm Administered Dose 1,000 mls @ as directed .ROUTE .[facility] ONE Stop: 05/05/17 11:15 Sodium Chloride (Normal Saline) Confirm Administered Dose 500 mls @ as directed .ROUTE .[facility] ONE Stop: 05/05/17 12:09 Lactated Ringer's (Ringers, Lactated) Confirm Administered Dose 1,000 mls @ as directed .ROUTE .[facility] ONE Stop: 05/05/17 14:24 Acetaminophen 1,000 mg/ Premix 100 mls @ 400 mls/hr IV Q6H PRN PRN Reason: Pain Stop: 05/06/17 15:55 Last Admin: 05/06/17 00:12 Dose: 400 mls/hr Clindamycin Phosphate 600 mg/ (Sodium Chloride) 54 mls @ 100 mls/hr IV Q8H [facility] Last Admin: 05/07/17 17:47 Dose: Not Given Lactated Ringer's (Ringers, Lactated) 1,000 mls @ 500 mls/hr IV ASDIRECTED [facility] Stop: 05/07/17 13:31 Lactated Ringer's (Ringers, Lactated) 1,000 mls @ 150 mls/hr IV ASDIRECTED [facility] Last Admin: 05/08/17 10:34 Dose: 150 mls/hr Levofloxacin/Dextrose (Levaquin In D5w 750 Mg/150 Ml) 150 mls @ 100 mls/hr IV Q24H [facility] Last Admin: 05/07/17 16:57 Dose: 100 mls/hr Ketamine HCl (Ketalar) 38 mg IV ASDIRECTED [facility] Midazolam HCl (Versed 1 Mg/Ml) Confirm Administered Dose 2 mg .ROUTE .[facility] ONE Stop: 05/05/17 07:13 Naloxone HCl (Narcan) 0.2 mg IVPUSH ASDIRECTED PRN PRN Reason: Oversedation Stop: 05/06/17 15:00 Neostigmine Methylsulfate (Neostigmine) Confirm Administered Dose 5 mg .ROUTE .[facility] ONE Stop: 05/05/17 07:11 Ondansetron HCl (Zofran) Confirm Administered Dose 4 mg .ROUTE .[facility] ONE Stop: 05/05/17 07:11 Povidone Iodine (Betadine 10% Soln) Confirm Administered Dose 1 ml .ROUTE .[facility] ONE Stop: 05/05/17 06:29 Last Admin: 05/05/17 14:02 Dose: 1 ml Propofol (Diprivan 20 Ml) Confirm Administered Dose 200 mg .ROUTE .[facility] ONE Stop: 05/05/17 07:11 Propofol (Diprivan 20 Ml) Confirm Administered Dose 600 mg .ROUTE .[facility] ONE Stop: 05/05/17 14:03 Propofol (Diprivan 20 Ml) Confirm Administered Dose 600 mg .ROUTE .[facility] ONE Stop: 05/05/17 14:03 Rocuronium [place] (Zemuron) Confirm Administered Dose 50 mg .ROUTE .[facility] ONE Stop: 05/05/17 07:11 Rocuronium [place] (Zemuron) Confirm Administered Dose 50 mg .ROUTE .[facility] ONE Stop: 05/05/17 08:31 Succinylcholine Chloride (Succinylcholine In Ns Pf) Confirm Administered Dose 200 mg .ROUTE .[facility] ONE Stop: 05/05/17 07:11 Thrombin (Thrombin-Jmi) Confirm Administered Dose 15,000 unit .ROUTE .[facility] ONE Stop: 05/05/17 06:29 Last Admin: 05/05/17 14:04 Dose: 15,000 unit Thrombin (Thrombin-Jmi) Confirm Administered Dose 15,000 unit .ROUTE .[facility] ONE Stop: 05/05/17 08:03 Last Admin: 05/05/17 14:04 Dose: 5,000 unit - Exam Quality Assessment: DVT prophylaxis General: alert, oriented, cooperative, mild distress Lungs: Clear to auscultation, Normal respiratory effort Cardiovascular: Regular Rate, Regular Rhythm, No Murmurs Abdomen: bowel sounds present, soft, no tenderness, no distension Extremities: no edema Skin: warm, dry, intact - Problem List Review Problem List Initiated/Reviewed/Updated: Yes - My Orders Last 24 Hours: My Active Orders 05/08/17 12:30 Lactated Ringers [Ringers, Lactated] 1,000 ml IV ASDIRECTED 05/09/17 05:00 BASIC METABOLIC PANEL,BMP [CHEM] Timed CBC WITH AUTO DIFF [HEME] Timed CREATINE KINASE,CK [CHEM] Timed - Plan Plan:: Assessment and plan - Lumbar spinal stenosis status post laminectomy - postop day 2 with residual right leg weakness. CT and MRI reassuring -Postoperative cares per orthopedic team Elevated CK level - likely represents mild rhabdomyolysis which is probably traumatic and related to the surgery and the duration of the surgery. Renal function has remained stable and CK level has improved modestly -Decrease LR IV rate to 75 mL/h -Repeat CK and creatinine in the morning
[2017-05-08] MEDS ORDERED: Lactated Ringers 1,000 ML IV SCH (12:30)
[2017-05-08] MEDS: Aspirin 325 MG Tab.EC PO SCH (17:05)
[2017-05-08] MEDS: Levofloxacin/Dextrose 5%-Water 750 MG in Premix Bag 1 BAG IV SCH (17:05)
[2017-05-08] MEDS: Zolpidem 5 MG Tab PO PRN (21:20)
[2017-05-09] MEDS: diphenhydrAMINE 25 MG Cap PO PRN ×2 (00:32→21:03)
[2017-05-09] MEDS: HYDROmorphone 1 MG/ML Syringe IVPUSH PRN (03:44)
[2017-05-09] MEDS: Aspirin 325 MG Tab.EC PO SCH (08:47)
[2017-05-09] MEDS: Gabapentin 300 MG Cap PO SCH ×3 (08:47→21:03)
[2017-05-09] MEDS: Acetaminophen/oxyCODONE 325-5 MG Tab PO PRN ×3 (08:53→21:03)
[2017-05-09] MEDS: Iron PS Complex & Vit B12/FA Cap PO SCH (16:10)
[2017-05-09] MEDS: Levofloxacin/Dextrose 5%-Water 750 MG in Premix Bag 1 BAG IV SCH (16:10)
--- NOTE | 2017-05-09 19:23 | PCM.PN ---
- General Info Functional Status: Reports: pain controlled, tolerating diet, urinating - Review of Systems General: Reports: No Symptoms HEENT: Reports: no symptoms Pulmonary: Reports: no symptoms Cardiovascular: Reports: No Symptoms Gastrointestinal: Reports: No symptoms Genitourinary: Reports: no symptoms Musculoskeletal: Reports: back pain, leg pain Skin: Reports: other Neurological: Reports: Numbness, Paresthesia, Difficulty Walking, Weakness Psychiatric: Reports: no symptoms - Patient Data Vitals - most recent: Last Vital Signs Temp 97.4 F 05/09/17 18:46 Pulse 96 05/09/17 18:46 Resp 18 05/09/17 18:46 BP 130/65 05/09/17 18:46 Pulse Ox 97 05/09/17 18:46 Weight - most recent: 207 lb 12.8 oz I&O - last 24 hours: Intake & Output 05/09/17 05/09/17 05/09/17 06:59 14:59 22:59 Intake Total 1958 1417 150 Output Total 2100 875 900 Balance -142 542 -750 Lab Results last 24 hrs: Laboratory Results - last 24 hr 05/04/17 05/09/17 05/09/17 Range/Units 09:20 04:32 04:32 WBC 11.0 (4.5-11.0) K/uL RBC 3.04 L (4.30-5.90) M/uL Hgb 7.9 L (12.0-15.0) g/dL Hct 25.2 L (40.0-54.0) % MCV 83 (80-98) fL MCH 26 L (27-31) pg MCHC 31 L (32-36) % Plt Count 284 (150-400) K/uL Neut % (Auto) 87 H (36-66) % Lymph % (Auto) 6 L (24-44) % [place] % (Auto) 7 H (2-6) % Eos % (Auto) 0 L (2-4) % Baso % (Auto) 0 (0-1) % Sodium 139 L (140-148) mmol/L Potassium 4.1 (3.6-5.2) mmol/L Chloride 104 (100-108) mmol/L Carbon Dioxide 28 (21-32) mmol/L Anion Gap 11.1 (5.0-14.0) mmol/L BUN 24 H (7-18) mg/dL Creatinine 1.1 (0.8-1.3) mg/dL Est Cr Clr Drug Dosing 79.36 mL/min Estimated GFR (MDRD) > 60 (>60) Glucose 144 H (74-106) mg/dL Calcium 8.8 (8.5-10.1) mg/dL Creatine Kinase 1724 H (39-308) U/L Blood Type A POSITIVE Gel Antibody Screen Negative Crossmatch See Detail Med Orders - Current: Current Medications Al Hydroxide/Mg Hydroxide (Mag-Al Plus) 15 ml PO Q4H PRN PRN Reason: Indigestion Aspirin (Ecotrin) 325 mg PO DAILY [facility] Last Admin: 05/09/17 08:47 Dose: 325 mg Bisacodyl (Dulcolax) 10 mg RECTAL DAILY PRN PRN Reason: Constipation Last Admin: 05/08/17 12:46 Dose: 10 mg Carisoprodol (Soma) 350 mg PO BEDTIME [facility] Diazepam (Valium) 5 mg IVPUSH Q6H PRN PRN Reason: Spasms Last Admin: 05/09/17 16:07 Dose: 5 mg Diphenhydramine HCl (Benadryl) 25 mg PO Q4H PRN PRN Reason: Itching Last Admin: 05/09/17 00:32 Dose: 25 mg Gabapentin (Neurontin) 300 mg PO TID [facility] Last Admin: 05/09/17 14:06 Dose: 300 mg Hydromorphone HCl (Dilaudid) 1 mg IVPUSH Q2H PRN PRN Reason: Pain Last Admin: 05/09/17 03:44 Dose: 1 mg Levofloxacin/Dextrose 750 mg/ (Premix) 150 mls @ 100 mls/hr IV Q24H [facility] Last Admin: 05/09/17 16:10 Dose: 100 mls/hr Magnesium Hydroxide (Milk Of Magnesia) 30 ml PO DAILY PRN PRN Reason: Constipation Last Admin: 05/08/17 08:35 Dose: 30 ml Oxycodone/Acetaminophen (Percocet 325-5 Mg) 1 tab PO Q4H PRN PRN Reason: Pain Last Admin: 05/09/17 17:01 Dose: 1 tab Polysaccharide Iron Complex (Ferrex 150 Forte) 1 cap PO BIDMEALS [facility] Last Admin: 05/09/17 16:10 Dose: 1 cap Senna (Senna) 8.6 mg PO BID PRN PRN Reason: Constipation Zolpidem Tartrate (Ambien) 5 mg PO BEDTIME PRN PRN Reason: Sleep Last Admin: 05/08/17 21:20 Dose: 5 mg Discontinued Medications Tranexamic Acid 3,000 mg/ (Sodium Chloride 100 ml) 0 mg TOP ASDIRECTED [facility] Stop: 05/05/17 08:01 Last Admin: 05/05/17 09:04 Dose: 120 bag Ropivacaine 49.25 ml/Ketorolac Tromethamine 30 mg/Epinephrine HCl 0.5 mg/ Clonidine HCl 80 mcg/ Sodium Chloride 48.45 ml 0 ml INJECT ONETIME ONE Stop: 05/05/17 14:46 Last Admin: 05/05/17 20:30 Dose: Not Given Dexamethasone (Dexamethasone) Confirm Administered Dose 4 mg .ROUTE .STK-MED ONE Stop: 05/05/17 07:11 Dexamethasone (Dexamethasone) 8 mg IVPUSH Q6H [facility] Stop: 05/06/17 11:01 Last Admin: 05/06/17 14:17 Dose: 8 mg Dexamethasone (Dexamethasone) 15 mg IVPUSH Q6H [facility] Last Admin: 05/06/17 20:16 Dose: Not Given Dexamethasone (Dexamethasone) 12 mg IVPUSH Q6H [facility] Last Admin: 05/08/17 13:45 Dose: 12 mg Fentanyl (Sublimaze) Confirm Administered Dose 250 mcg .ROUTE .STK-MED ONE Stop: 05/05/17 07:11 Fentanyl (Sublimaze) Confirm Administered Dose 250 mcg .ROUTE .STK-MED ONE Stop: 05/05/17 08:21 Fentanyl (Sublimaze) Confirm Administered Dose 250 mcg .ROUTE .STK-MED ONE Stop: 05/05/17 11:43 Fentanyl (Sublimaze) Confirm Administered Dose 250 mcg .ROUTE .STK-MED ONE Stop: 05/05/17 13:26 Gadoteridol (Prohance) 20 ml IV . DIRECTED [facility] Stop: 05/06/17 13:01 Last Admin: 05/06/17 13:40 Dose: 20 ml Glycopyrrolate () Confirm Administered Dose 1 mg .ROUTE .STK-MED ONE Stop: 05/05/17 07:11 Clindamycin Phosphate 900 mg/ (Sodium Chloride) 106 mls @ 200 mls/hr IV ONETIME ONE Stop: 05/05/17 07:16 Last Admin: 05/05/17 07:44 Dose: 200 mls/hr Lactated Ringer's (Ringers, Lactated) 1,000 mls @ 0 mls/hr IV ASDIRECTED [facility] PRN Reason: KVO Last Admin: 05/05/17 07:10 Dose: 25 mls/hr Ketamine HCl 100 mg/ Sodium (Chloride) 100 mls @ 22 mls/hr IV ASDIRECTED [facility] Lactated Ringer's (Ringers, Lactated) Confirm Administered Dose 1,000 mls @ as directed .ROUTE .[facility]-MED ONE Stop: 05/05/17 10:02 Lactated Ringer's (Ringers, Lactated) Confirm Administered Dose 1,000 mls @ as directed .ROUTE .[facility] ONE Stop: 05/05/17 10:03 Lactated Ringer's (Ringers, Lactated) Confirm Administered Dose 1,000 mls @ as directed .ROUTE .[facility] ONE Stop: 05/05/17 11:15 Sodium Chloride (Normal Saline) Confirm Administered Dose 500 mls @ as directed .ROUTE .[facility] ONE Stop: 05/05/17 12:09 Lactated Ringer's (Ringers, Lactated) Confirm Administered Dose 1,000 mls @ as directed .ROUTE .[facility] ONE Stop: 05/05/17 14:24 Acetaminophen 1,000 mg/ Premix 100 mls @ 400 mls/hr IV Q6H PRN PRN Reason: Pain Stop: 05/06/17 15:55 Last Admin: 05/06/17 00:12 Dose: 400 mls/hr Clindamycin Phosphate 600 mg/ (Sodium Chloride) 54 mls @ 100 mls/hr IV Q8H [facility] Last Admin: 05/07/17 17:47 Dose: Not Given Lactated Ringer's (Ringers, Lactated) 1,000 mls @ 500 mls/hr IV ASDIRECTED [facility] Stop: 05/07/17 13:31 Lactated Ringer's (Ringers, Lactated) 1,000 mls @ 150 mls/hr IV ASDIRECTED [facility] Last Admin: 05/08/17 10:34 Dose: 150 mls/hr Levofloxacin/Dextrose (Levaquin In D5w 750 Mg/150 Ml) 150 mls @ 100 mls/hr IV Q24H [facility] Last Admin: 05/07/17 16:57 Dose: 100 mls/hr Lactated Ringer's (Ringers, Lactated) 1,000 mls @ 75 mls/hr IV ASDIRECTED [facility] Last Admin: 05/08/17 23:06 Dose: 75 mls/hr Ketamine HCl (Ketalar) 38 mg IV ASDIRECTED [facility] Midazolam HCl (Versed 1 Mg/Ml) Confirm Administered Dose 2 mg .ROUTE .ST[facility]-MED ONE Stop: 05/05/17 07:13 Naloxone HCl (Narcan) 0.2 mg IVPUSH ASDIRECTED PRN PRN Reason: Oversedation Stop: 05/06/17 15:00 Neostigmine Methylsulfate (Neostigmine) Confirm Administered Dose 5 mg .ROUTE .ST[facility]-MED ONE Stop: 05/05/17 07:11 Ondansetron HCl (Zofran) Confirm Administered Dose 4 mg .ROUTE .STK-MED ONE Stop: 05/05/17 07:11 Povidone Iodine (Betadine 10% Soln) Confirm Administered Dose 1 ml .ROUTE .STK- MED ONE Stop: 05/05/17 06:29 Last Admin: 05/05/17 14:02 Dose: 1 ml Propofol (Diprivan 20 Ml) Confirm Administered Dose 200 mg .ROUTE .STK-MED ONE Stop: 05/05/17 07:11 Propofol (Diprivan 20 Ml) Confirm Administered Dose 600 mg .ROUTE .STK-MED ONE Stop: 05/05/17 14:03 Propofol (Diprivan 20 Ml) Confirm Administered Dose 600 mg .ROUTE .STK-MED ONE Stop: 05/05/17 14:03 Rocuronium [place] (Zemuron) Confirm Administered Dose 50 mg .ROUTE .STK-MED ONE Stop: 05/05/17 07:11 Rocuronium [place] (Zemuron) Confirm Administered Dose 50 mg .ROUTE .STK-MED ONE Stop: 05/05/17 08:31 Succinylcholine Chloride (Succinylcholine In Ns Pf) Confirm Administered Dose 200 mg .ROUTE .STK-MED ONE Stop: 05/05/17 07:11 Thrombin (Thrombin-Jmi) Confirm Administered Dose 15,000 unit .ROUTE .STK-MED ONE Stop: 05/05/17 06:29 Last Admin: 05/05/17 14:04 Dose: 15,000 unit Thrombin (Thrombin-Jmi) Confirm Administered Dose 15,000 unit .ROUTE .STK-MED ONE Stop: 05/05/17 08:03 Last Admin: 05/05/17 14:04 Dose: 5,000 unit - Exam General: alert, oriented HEENT: Pupils equal, Pupils reactive, EOMI Neck: supple Skin: warm, dry, intact Wound/Incisions: healing well, dressing dry and intact Neurological: no new focal deficit Psy/Mental Status: alert, normal affect Physical Findings Comments:: Pt is now able to log roll rle on own. Decreased pain in right lower extremity. Decreased back pain. Almost antigravity on hip flexors and knee flexors. Definite improvement. Johnson out and urinating well without difficulty. Ambulating a few steps with knee brace and walker. Does well putting weight on rle but difficult moving rle forward during gait. - Problem List & Annotations (1) Foraminal stenosis of lumbar region SNOMED Code(s): 91199432 Code(s): M99.83 - OTHER BIOMECHANICAL LESIONS OF LUMBAR REGION Status: Chronic Current Visit: No (2) Spinal stenosis of lumbar region SNOMED Code(s): 88960859 Code(s): M48.06 - SPINAL STENOSIS, LUMBAR REGION Status: Chronic Current Visit: No - Problem List Review Problem List Initiated/Reviewed/Updated: Yes - My Orders Last 24 Hours: My Active Orders 05/09/17 12:19 Convert IV to Saline Lock [OM.PC] Routine - Plan Plan:: A: POD 4 L1-S1 TLIF with residual rle weakness which is very slowly but progressively improving P: continue PT/OT. Started ASA 325 mg daily for dvt prophylaxis Levoquin started yesterday IV as preventative measure for possible CSF leak. CSF leak risk seen as minimal due to lack of ABDI, photophobia, kernig's sign, as well as lack of abundant clear drainage. Daily dressing change (has been minimal drainage thus far) Pt had form made by Brandon at [facility] today in the clinic. Anticipate brace ready in 2 weeks for RLE. Continue daily exercises per PT. Will switch to oral levaquin for two weeks at [place] Will plan on 2 week f/u after discharge.
[2017-05-10] MEDS: Acetaminophen/oxyCODONE 325-5 MG Tab PO PRN ×2 (03:09→07:19)
[2017-05-10 07:13] VITALS: BP 128/90
[2017-05-10] MEDS: Iron PS Complex & Vit B12/FA Cap PO SCH (07:20)
[2017-05-10] MEDS: Aspirin 325 MG Tab.EC PO SCH (08:19)
[2017-05-10] MEDS: Gabapentin 300 MG Cap PO SCH (08:19)
--- NOTE | 2017-06-08 08:52 | PCM.DCSUM1 ---
Discharge Summary - Discharge Data Discharge Date: 06/10/17 Discharge Disposition: DC/Tfer to [facility] Condition: Fair - Patient Summary/Data Consults: Consultations 05/05/17 16:02 Consult to Physician [CONS] Routine Consulting Provider: Thomas Angulo Call Completed to Consulting Physician: mary 05/07/17 11:00 OT Evaluation and Treatment [CONS] Routine Please Evaluate and Treat. OT Reason for Consult: Strengthening This query below is only for informational purposes and is not editable. Admission Diagnosis/Problem: Lumbar radiculopathy PT Evaluation and Treatment [CONS] Routine Please Evaluate and Treat. PT Reason for Consult: Strengthening This query below is only for informational purposes and is not editable. Admission Diagnosis/Problem: Lumbar radiculopathy - Patient Instructions Diet: Usual Diet as Tolerated Activity: As Tolerated, Cough & Deep Breathe, Full Weight Bearing, No Strenuous Activities Driving: Do Not Drive Showering/Bathing: May Shower Wound/Incision Care: Keep Operative Site/Wound Site Clean and Dry, Change Dressing Daily Notify Provider of: Fever, Increased Pain, Swelling and Redness, Drainage, Nausea and/or Vomiting - Discharge Plan Prescriptions/Med Rec: Iron PS Complex & Vit B12/FA [Ferrex 150 Forte] 1 cap PO BIDMEALS #60 cap Levofloxacin [Levaquin] 750 mg PO Q24H #14 tablet Home Medications: Home Meds Carisoprodol [Soma] 350 mg PO TID 10/19/16 [History] Omeprazole Magnesium [Prilosec Otc] 20 mg PO DAILY 04/20/17 [History] Polyethylene Glycol 3350 [MiraLAX] 17 gm PO DAILY 05/05/17 [History] Levofloxacin [Levaquin] 750 mg PO Q24H #14 tablet 05/09/17 [Rx] Iron PS Complex & Vit B12/FA [Ferrex 150 Forte] 1 cap PO BIDMEALS #60 cap [Rx] Acetaminophen/oxyCODONE [Percocet 325-5 MG] 1 tab PO Q4H PRN 05/20/17 [History] Aspirin [Ecotrin] 81 mg PO DAILY 05/20/17 [History] Ibuprofen [Ibuprofen] 800 mg PO BID 05/20/17 [History] Melatonin 1 tab PO BEDTIME 05/22/17 [History] oxyCODONE HCl/Acetaminophen [Percocet 10-325 mg Tablet] 1 tab PO Q4H PRN [History] Patient Handouts: Spinal Fusion, Care After, Gabapentin capsules or tablets Referrals: Dmitry Chlidress DO [Physician] - - Discharge Summary/Plan Comment DC Time >30 min.: Yes Discharge Summary/Plan Comment: Misael Slater is a pleasant 62-year-old male who is status post postop day 3 of a lumbar fusion of L1-S1. He is doing very well. He is ambulatory without any difficulties. He has no pain at this time. Assessment: Patient does have equal strength in bilateral lower extremities. No pain upon palpation. Incision is clean and intact at this time. Distal motor and sensory examinations grossly intact. Plan: At this time patient will follow up with orthopedic clinic in one month. We will send him home with Percocet and Valium at this time. Patient will wear his brace daily. He'll notify us if he has any other questions. - Patient Data Vitals - Most Recent: Last Vital Signs Temp 36.2 C 05/10/17 07:11 Pulse 67 05/10/17 07:11 Resp 20 05/10/17 07:11 BP 128/90 05/10/17 07:11 Pulse Ox 98 05/10/17 07:11 Weight - Most Recent: 207 lb 12.8 oz Med Orders - Current: Current Medications Discontinued Medications Al Hydroxide/Mg Hydroxide (Mag-Al Plus) 15 ml PO Q4H PRN PRN Reason: Indigestion Aspirin (Ecotrin) 325 mg PO DAILY [facility] Last Admin: 05/10/17 08:19 Dose: 325 mg Bisacodyl (Dulcolax) 10 mg RECTAL DAILY PRN PRN Reason: Constipation Last Admin: 05/08/17 12:46 Dose: 10 mg Carisoprodol (Soma) 350 mg PO BEDTIME SHALINI Last Admin: 05/09/17 21:03 Dose: 350 mg Tranexamic Acid 3,000 mg/ (Sodium Chloride 100 ml) 0 mg TOP ASDIRECTED [facility] Stop: 05/05/17 08:01 Last Admin: 05/05/17 09:04 Dose: 120 bag Ropivacaine 49.25 ml/Ketorolac Tromethamine 30 mg/Epinephrine HCl 0.5 mg/ Clonidine HCl 80 mcg/ Sodium Chloride 48.45 ml 0 ml INJECT ONETIME ONE Stop: 05/05/17 14:46 Last Admin: 05/05/17 20:30 Dose: Not Given Dexamethasone (Dexamethasone) Confirm Administered Dose 4 mg .ROUTE .STK-MED ONE Stop: 05/05/17 07:11 Dexamethasone (Dexamethasone) 8 mg IVPUSH Q6H [facility] Stop: 05/06/17 11:01 Last Admin: 05/06/17 14:17 Dose: 8 mg Dexamethasone (Dexamethasone) 15 mg IVPUSH Q6H [facility] Last Admin: 05/06/17 20:16 Dose: Not Given Dexamethasone (Dexamethasone) 12 mg IVPUSH Q6H [facility] Last Admin: 05/08/17 13:45 Dose: 12 mg Diazepam (Valium) 5 mg IVPUSH Q6H PRN PRN Reason: Spasms Last Admin: 05/09/17 16:07 Dose: 5 mg Diphenhydramine HCl (Benadryl) 25 mg PO Q4H PRN PRN Reason: Itching Last Admin: 05/09/17 21:03 Dose: 25 mg Fentanyl (Sublimaze) Confirm Administered Dose 250 mcg .ROUTE .STK-MED ONE Stop: 05/05/17 07:11 Fentanyl (Sublimaze) Confirm Administered Dose 250 mcg .ROUTE .STK-MED ONE Stop: 05/05/17 08:21 Fentanyl (Sublimaze) Confirm Administered Dose 250 mcg .ROUTE .STK-MED ONE Stop: 05/05/17 11:43 Fentanyl (Sublimaze) Confirm Administered Dose 250 mcg .ROUTE .STK-MED ONE Stop: 05/05/17 13:26 Gabapentin (Neurontin) 300 mg PO TID [facility] Last Admin: 05/10/17 08:19 Dose: 300 mg Gadoteridol (Prohance) 20 ml IV . DIRECTED [facility] Stop: 05/06/17 13:01 Last Admin: 05/06/17 13:40 Dose: 20 ml Glycopyrrolate () Confirm Administered Dose 1 mg .ROUTE .STK-MED ONE Stop: 05/05/17 07:11 Hydromorphone HCl (Dilaudid) 1 mg IVPUSH Q2H PRN PRN Reason: Pain Last Admin: 05/09/17 03:44 Dose: 1 mg Clindamycin Phosphate 900 mg/ (Sodium Chloride) 106 mls @ 200 mls/hr IV ONETIME ONE Stop: 05/05/17 07:16 Last Admin: 05/05/17 07:44 Dose: 200 mls/hr Lactated Ringer's (Ringers, Lactated) 1,000 mls @ 0 mls/hr IV ASDIRECTED SHALINI PRN Reason: KVO Last Admin: 05/05/17 07:10 Dose: 25 mls/hr Ketamine HCl 100 mg/ Sodium (Chloride) 100 mls @ 22 mls/hr IV ASDIRECTED [facility] Lactated Ringer's (Ringers, Lactated) Confirm Administered Dose 1,000 mls @ as directed .ROUTE .ST-MED ONE Stop: 05/05/17 10:02 Lactated Ringer's (Ringers, Lactated) Confirm Administered Dose 1,000 mls @ as directed .ROUTE .[facility] ONE Stop: 05/05/17 10:03 Lactated Ringer's (Ringers, Lactated) Confirm Administered Dose 1,000 mls @ as directed .ROUTE .[facility] ONE Stop: 05/05/17 11:15 Sodium Chloride (Normal Saline) Confirm Administered Dose 500 mls @ as directed .ROUTE .ST-MED ONE Stop: 05/05/17 12:09 Lactated Ringer's (Ringers, Lactated) Confirm Administered Dose 1,000 mls @ as directed .ROUTE .ST-MED ONE Stop: 05/05/17 14:24 Acetaminophen 1,000 mg/ Premix 100 mls @ 400 mls/hr IV Q6H PRN PRN Reason: Pain Stop: 05/06/17 15:55 Last Admin: 05/06/17 00:12 Dose: 400 mls/hr Clindamycin Phosphate 600 mg/ (Sodium Chloride) 54 mls @ 100 mls/hr IV Q8H SHALIN[facility] Last Admin: 05/07/17 17:47 Dose: Not Given Lactated Ringer's (Ringers, Lactated) 1,000 mls @ 500 mls/hr IV ASDIRECTED [facility] Stop: 05/07/17 13:31 Lactated Ringer's (Ringers, Lactated) 1,000 mls @ 150 mls/hr IV ASDIRECTED [facility] Last Admin: 05/08/17 10:34 Dose: 150 mls/hr Levofloxacin/Dextrose (Levaquin In D5w 750 Mg/150 Ml) 150 mls @ 100 mls/hr IV Q24H [facility] Last Admin: 05/07/17 16:57 Dose: 100 mls/hr Levofloxacin/Dextrose 750 mg/ (Premix) 150 mls @ 100 mls/hr IV Q24H [facility] Last Admin: 05/09/17 16:10 Dose: 100 mls/hr Lactated Ringer's (Ringers, Lactated) 1,000 mls @ 75 mls/hr IV ASDIRECTED [facility] Last Admin: 05/08/17 23:06 Dose: 75 mls/hr Ketamine HCl (Ketalar) 38 mg IV ASDIRECTED [facility] Magnesium Hydroxide (Milk Of Magnesia) 30 ml PO DAILY PRN PRN Reason: Constipation Last Admin: 05/08/17 08:35 Dose: 30 ml Midazolam HCl (Versed 1 Mg/Ml) Confirm Administered Dose 2 mg .ROUTE .STK-MED ONE Stop: 05/05/17 07:13 Naloxone HCl (Narcan) 0.2 mg IVPUSH ASDIRECTED PRN PRN Reason: Oversedation Stop: 05/06/17 15:00 Neostigmine Methylsulfate (Neostigmine) Confirm Administered Dose 5 mg .ROUTE .STK-MED ONE Stop: 05/05/17 07:11 Ondansetron HCl (Zofran) Confirm Administered Dose 4 mg .ROUTE .STK-MED ONE Stop: 05/05/17 07:11 Oxycodone/Acetaminophen (Percocet 325-5 Mg) 1 tab PO Q4H PRN PRN Reason: Pain Last Admin: 05/10/17 07:19 Dose: 1 tab Polysaccharide Iron Complex (Ferrex 150 Forte) 1 cap PO BIDMEALS [facility] Last Admin: 05/10/17 07:20 Dose: 1 cap Povidone Iodine (Betadine 10% Soln) Confirm Administered Dose 1 ml .ROUTE .STK- MED ONE Stop: 05/05/17 06:29 Last Admin: 05/05/17 14:02 Dose: 1 ml Propofol (Diprivan 20 Ml) Confirm Administered Dose 200 mg .ROUTE .STK-MED ONE Stop: 05/05/17 07:11 Propofol (Diprivan 20 Ml) Confirm Administered Dose 600 mg .ROUTE .STK-MED ONE Stop: 05/05/17 14:03 Propofol (Diprivan 20 Ml) Confirm Administered Dose 600 mg .ROUTE .STK-MED ONE Stop: 05/05/17 14:03 Rocuronium [place] (Zemuron) Confirm Administered Dose 50 mg .ROUTE .STK-MED ONE Stop: 05/05/17 07:11 Rocuronium [place] (Zemuron) Confirm Administered Dose 50 mg .ROUTE .STK-MED ONE Stop: 05/05/17 08:31 Senna (Senna) 8.6 mg PO BID PRN PRN Reason: Constipation Succinylcholine Chloride (Succinylcholine In Ns Pf) Confirm Administered Dose 200 mg .ROUTE .STK-MED ONE Stop: 05/05/17 07:11 Thrombin (Thrombin-Jmi) Confirm Administered Dose 15,000 unit .ROUTE .STK-MED ONE Stop: 05/05/17 06:29 Last Admin: 05/05/17 14:04 Dose: 15,000 unit Thrombin (Thrombin-Jmi) Confirm Administered Dose 15,000 unit .ROUTE .STK-MED ONE Stop: 05/05/17 08:03 Last Admin: 05/05/17 14:04 Dose: 5,000 unit Zolpidem Tartrate (Ambien) 5 mg PO BEDTIME PRN PRN Reason: Sleep Last Admin: 05/08/17 21:20 Dose: 5 mg *Q Meaningful Use (DIS) - VTE *Q VTE Criteria *Q: - Stroke *Q Stroke Criteria *Q: - AMI *Q AMI Criteria *Q:
== END 2017-05-10 11:15 | DRG 459 ==
LOC: JP.SDS 06:07 → JP.MS 06:07 → EDSTATUS 08:15 → JP.MS 15:54
PROVIDERS: ADMIT Orthopaedic Surgery; ATTEND Orthopaedic Surgery
PROC: 00QT0ZZ Repair Spinal Meninges, Open Approach (ICD-10-PCS; principal; 2017-05-05)
PROC: 0SH004Z Insertion of Internal Fixation Device into Lumbar Vertebral Joint, Open Approach (ICD-10-PCS; principal; 2017-05-05)
PROC: 0QB00ZZ Excision of Lumbar Vertebra, Open Approach (ICD-10-PCS; principal; 2017-05-05)
PROC: 30233N1 Transfusion of Nonautologous Red Blood Cells into Peripheral Vein, Percutaneous Approach (ICD-10-PCS; principal; 2017-05-05)
PROC: 0SG10AJ Fusion of 2 or more Lumbar Vertebral Joints with Interbody Fusion Device, Posterior Approach, Anterior Column, Open Approach (ICD-10-PCS; principal; 2017-05-05)
DX: M48.06 Spinal stenosis, lumbar region (principal); G95.19 Other vascular myelopathies; M62.82 Rhabdomyolysis; M54.16 Radiculopathy, lumbar region; Z87.820 Personal history of traumatic brain injury; K21.9 Gastro-esophageal reflux disease without esophagitis; I25.2 Old myocardial infarction; I25.10 Atherosclerotic heart disease of native coronary artery without angina pectoris; Z87.891 Personal history of nicotine dependence; Z79.82 Long term (current) use of aspirin; Z88.1 Allergy status to other antibiotic agents
CPT/HCPCS: 36415; 36430; 72131; 72158; 76001; 80048; 82550; 85014; 85018; 85025; 86850; 86900; 86901; 86920; 86922; 94762; 97110-GP; 97112-GP; 97116-GP; 97162-GP; 97165-GO; 97530-GP; 97535-GP; A9270-GY; A9576; C1713; J0131; J1100; J1170; J1956; J2250; J2405; J2704; J2795; J3010; J3360; J7030; J7040; J7050; J7120; P9016; S0077

== ENCOUNTER 2017-05-20 08:41 | Emergency (ER) | payer MEDICARE, OTHER ==
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
[2017-05-20] MEDS ORDERED: diphenhydrAMINE 50 MG/ML SDV IVPUSH ONE (09:57)
[2017-05-20] MEDS: Sodium Chloride 0.9% 10 ML Syringe FLUSH PRN ×3 (10:10→11:02)
[2017-05-20] MEDS ORDERED: LORazepam 2 MG/ML MDV IVPUSH ONE (10:34)
[2017-05-20 10:46] VITALS: BP 144/49
[2017-05-20] MEDS ORDERED: HYDROmorphone 0.5 MG/0.5 ML Syringe IVPUSH ONE (10:57)
== END 2017-05-20 12:29 | disposition home or self-care (01) ==
LOC: JP.ED 08:41
DX: I48.91 Unspecified atrial fibrillation (principal); I25.2 Old myocardial infarction; K21.9 Gastro-esophageal reflux disease without esophagitis; F32.9 Major depressive disorder, single episode, unspecified; M19.90 Unspecified osteoarthritis, unspecified site; Z98.890 Other specified postprocedural states; Z79.82 Long term (current) use of aspirin; Z79.899 Other long term (current) drug therapy; Z88.1 Allergy status to other antibiotic agents
CPT/HCPCS: 96374; 96375; 99283; J1170; J1200; J2060; J7050; 99281

== ENCOUNTER 2017-07-10 20:19 | Emergency (ER) | payer MEDICARE, OTHER ==
[2017-07-10 20:54] VITALS: BP 152/73
[2017-07-10] MEDS ORDERED: Furosemide 20 MG Tab PO ONE (22:28)
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
== END 2017-07-10 22:44 | disposition home or self-care (01) ==
LOC: JP.ED 20:19
DX: R60.0 Localized edema (principal); D64.9 Anemia, unspecified; I25.2 Old myocardial infarction; K21.9 Gastro-esophageal reflux disease without esophagitis; M19.90 Unspecified osteoarthritis, unspecified site; F32.9 Major depressive disorder, single episode, unspecified; Z98.890 Other specified postprocedural states; Z79.899 Other long term (current) drug therapy; Z79.82 Long term (current) use of aspirin; Z88.1 Allergy status to other antibiotic agents
CPT/HCPCS: 36415; 80053; 83880; 85025; 99283; 99284; A9270

== ENCOUNTER 2017-08-13 19:15 | Observation (INO) | payer MEDICARE, OTHER ==
[2017-08-13] MEDS ORDERED: Acetaminophen 325 MG Tab PO ONE (19:45)
[2017-08-13] MEDS ORDERED: Sodium Chloride 0.9% 1,000 ML IV STA (19:45)
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
[2017-08-13] MEDS ORDERED: Levofloxacin/Dextrose 5%-Water 750 MG in Premix Bag 1 BAG IV ONE (21:26)
[2017-08-13] MEDS ORDERED: Acetaminophen/HYDROcodone 325-10 MG Tab PO PRN (22:09)
[2017-08-13] MEDS ORDERED: Sodium Chloride 0.9% 1,000 ML IV SCH (22:15)
[2017-08-13] MEDS ORDERED: Levofloxacin/Dextrose 5%-Water 750 MG in Premix Bag 1 BAG IV SCH (22:30)
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
[2017-08-14] MEDS ORDERED: Pantoprazole 40 MG Tab.CR PO SCH (07:30)
[2017-08-14] MEDS ORDERED: OMEPRAZOLE 20MG (PTOM) PO SCH (08:30)
[2017-08-14] MEDS ORDERED: Furosemide 20 MG Tab (PTOM) PO SCH (09:00)
[2017-08-14] MEDS ORDERED: Gabapentin 300 MG Cap PO SCH (09:00)
[2017-08-14] MEDS ORDERED: Sodium Ferric Gluconate Cmplex 250 MG in Sodium Chloride 0.9% 100 ML IV ONE (10:00)
--- NOTE | 2017-08-14 10:52 | PCM.DCSUM1 ---
Discharge Summary - Hospital Course Brief History: Mr. Slater is a 62-year-old gentleman who was admitted through the emergency department with microcytic anemia and probable pneumonia. - Discharge Data Discharge Date: 08/14/17 Discharge Disposition: Home, Self-Care 01 Condition: Fair - Discharge Diagnosis/Problem(s) (1) Pneumonia SNOMED Code(s): 707128425 ICD Code: J18.9 - PNEUMONIA, UNSPECIFIED ORGANISM Status: Acute Current Visit: Yes (2) Anemia SNOMED Code(s): 230895246 ICD Code: D64.9 - ANEMIA, UNSPECIFIED Status: Acute Current Visit: Yes - Patient Summary/Data Hospital Course: Mr. Slater is a 62-year-old gentleman who presented to the emergency department because of weakness and shortness of breath. On evaluation was found to have a hemoglobin of 7.3 and was also felt to have probable pneumonia. He is status post previous spinal surgery. Since that time has had ongoing difficulty with anemia, iron levels have remained low despite oral iron supplementation. He also was noted to be febrile and felt to have probable left lung infiltrate on chest x-ray. Blood cultures were obtained and he was started on IV antibiotic therapy with levofloxacin. He was given IV fluids for hydration after admission and transfused 2 units of red blood cells. Following morning his hemoglobin had come up to 8.8. Iron levels were obtained following admission and found to be low. Was recommended that he stay at least one additional day for further IV antibiotics and monitoring of hemoglobin. He refused this recommendation and request that he be discharged to home. He will except IV iron infusion prior to discharge. Activity will be as tolerated and he will resume his usual diet. Follow-up appointment will be scheduled with his primary care provider within one week and hemoglobin should be obtained at the time of follow-up appointment. I've recommended that he undergo upper and lower endoscopy for further evaluation of his anemia once he is recovered from his respiratory tract infection. He will be discharged on oral antibiotic therapy with levofloxacin for an additional 7 days. He should return immediately to the emergency department if he notes black tarry stools or red blood in the stool, recurrent weakness, persistent fevers, or respiratory compromise. - Patient Instructions Diet: Usual Diet as Tolerated, No Alcoholic Beverages Activity: As Tolerated Other/Special Instructions: Please schedule follow-up appointment with Dr. Waggoner within one week. Hemoglobin level should be checked at the time of follow -up appointment. - Discharge Plan Prescriptions/Med Rec: Levofloxacin [Levaquin] 750 mg PO Q24H #7 tablet Home Medications: Home Meds Carisoprodol [Soma] 350 mg PO TID 10/19/16 [History] Aspirin [Ecotrin] 81 mg PO DAILY 05/20/17 [History] Ibuprofen 800 mg PO BID 05/20/17 [History] Gabapentin [Neurontin] 300 mg PO TID 07/06/17 [History] Hydrocodone/Acetaminophen [Hydrocodon-Acetaminophn 10-325] 1 tab PO Q8H PRN 09/15 [History] Omeprazole 20 mg PO DAILY 07/10/17 [History] diphenhydrAMINE [Benadryl] 25 mg PO BEDTIME 07/10/17 [History] Ferrous Sulfate 1 tab PO TID 08/13/17 [History] Furosemide [Lasix] 1 tab PO DAILY 08/13/17 [History] Levofloxacin [Levaquin] 750 mg PO Q24H #7 tablet 08/14/17 [Rx] Referrals: Manish Waggoner MD [Primary Care Provider] - - Patient Data Vitals - Most Recent: Last Vital Signs Temp 99.1 F 08/14/17 06:15 Pulse 87 08/14/17 06:15 Resp 18 08/14/17 06:15 BP 135/64 08/14/17 06:15 Pulse Ox 100 08/14/17 06:15 Weight - Most Recent: 221 lb 4.8 oz I&O - Last 24 hours: Intake & Output 08/13/17 08/14/17 08/14/17 22:59 06:59 14:59 Intake Total 1103 360 Output Total 1500 800 Balance -397 -440 Lab Results - Last 24 hrs: Laboratory Results - last 24 hr 08/14/17 08/14/17 08/14/17 Range/Units 05:33 05:35 09:10 WBC 14.0 H (4.5-11.0) K/uL RBC 4.13 L (4.30-5.90) M/uL Hgb 8.8 L (12.0-15.0) g/dL Hct 29.2 L (40.0-54.0) % MCV 71 L (80-98) fL MCH 21 L (27-31) pg MCHC 30 L (32-36) % Plt Count 633 H (150-400) K/uL Sodium 139 L (140-148) mmol/L Potassium 3.6 (3.6-5.2) mmol/L Chloride 103 (100-108) mmol/L Carbon Dioxide 26 (21-32) mmol/L Anion Gap 13.6 (5.0-14.0) mmol/L BUN 13 (7-18) mg/dL Creatinine 1.0 (0.8-1.3) mg/dL Est Cr Clr Drug Dosing 88.78 mL/min Estimated GFR (MDRD) > 60 (>60) Glucose 105 (74-106) mg/dL Calcium 8.8 (8.5-10.1) mg/dL Iron 20 L (65-175) ug/dL TIBC 183 L (250-450) ug/dl % Saturation 11 L (20-55) % Ferritin (8-388) ng/ml 08/14/17 Range/Units 09:10 WBC (4.5-11.0) K/uL RBC (4.30-5.90) M/uL Hgb (12.0-15.0) g/dL Hct (40.0-54.0) % MCV (80-98) fL MCH (27-31) pg MCHC (32-36) % Plt Count (150-400) K/uL Sodium (140-148) mmol/L Potassium (3.6-5.2) mmol/L Chloride (100-108) mmol/L Carbon Dioxide (21-32) mmol/L Anion Gap (5.0-14.0) mmol/L BUN (7-18) mg/dL Creatinine (0.8-1.3) mg/dL Est Cr Clr Drug Dosing mL/min Estimated GFR (MDRD) (>60) Glucose (74-106) mg/dL Calcium (8.5-10.1) mg/dL Iron (65-175) ug/dL TIBC (250-450) ug/dl % Saturation (20-55) % Ferritin 72 (8-388) ng/ml Med Orders - Current: Current Medications Hydrocodone Bitart/Acetaminophen (Charlo 325-10 Mg) 1 tab PO Q8H PRN PRN Reason: Pain Carisoprodol (Soma) 350 mg PO TID [facility] Last Admin: 08/14/17 08:28 Dose: Not Given Diphenhydramine HCl (Benadryl) 25 mg PO BEDTIME [facility] Furosemide (Lasix) 20 mg PO DAILY [facility] Last Admin: 08/14/17 08:29 Dose: 20 mg Gabapentin (Neurontin) 300 mg PO TID [facility] Last Admin: 08/14/17 08:30 Dose: 300 mg Sodium Chloride (Normal Saline) 1,000 mls @ 125 mls/hr IV ASDIRECTED [facility] Last Admin: 08/14/17 06:14 Dose: 125 mls/hr Levofloxacin/Dextrose 750 mg/ (Premix) 150 mls @ 100 mls/hr IV Q24H [facility] Ferric Sodium Gluconate Complex 250 mg/ Sodium Chloride 120 mls @ 60 mls/hr IV ONETIME ONE Stop: 08/14/17 11:59 Last Admin: 08/14/17 10:28 Dose: 60 mls/hr Omeprazole 20mg ( (Ptom)) 0 each PO ACBREAKFAST [facility] Last Admin: 08/14/17 08:29 Dose: 1 each Discontinued Medications Acetaminophen (Tylenol) 650 mg PO NOW ONE Stop: 08/13/17 19:46 Last Admin: 08/13/17 20:09 Dose: 650 mg Carisoprodol (Soma) Confirm Administered Dose 350 mg .ROUTE .STK-MED ONE Stop: 08/14/17 03:45 Last Admin: 08/14/17 03:47 Dose: Not Given Sodium Chloride (Normal Saline) 1,000 mls @ 999 mls/hr IV .BOLUS STA Stop: 08/13/17 20:45 Last Admin: 08/13/17 20:12 Dose: 999 mls/hr Levofloxacin/Dextrose 750 mg/ (Premix) 150 mls @ 100 mls/hr IV ONETIME ONE Stop: 08/13/17 22:55 Last Admin: 08/13/17 21:51 Dose: 100 mls/hr Levofloxacin/Dextrose 750 mg/ (Premix) 150 mls @ 100 mls/hr IV Q24H [facility] *Q Meaningful Use (DIS) - VTE *Q VTE Criteria *Q: - Stroke *Q Stroke Criteria *Q: - AMI *Q AMI Criteria *Q:
[2017-08-14 11:03] VITALS: BP 138/65
--- NOTE | 2017-08-14 11:10 | CR ---
Chest 2V INDICATION: cough, fever, palpitation FINDINGS: Negative chest.
[2017-08-14] MEDS ORDERED: Levofloxacin/Dextrose 5%-Water 750 MG in Premix Bag 1 BAG IV SCH (21:00)
[2017-08-14] MEDS ORDERED: diphenhydrAMINE 25 MG Cap PO SCH (21:00)
== END 2017-08-14 13:50 | disposition home or self-care (01) ==
LOC: JP.ED 19:15 → JP.MS 22:19
PROVIDERS: ADMIT Family Medicine; ATTEND Hospitalist
DX: J18.9 Pneumonia, unspecified organism (principal); D64.9 Anemia, unspecified; K21.9 Gastro-esophageal reflux disease without esophagitis; F32.9 Major depressive disorder, single episode, unspecified; Z88.1 Allergy status to other antibiotic agents; Z79.82 Long term (current) use of aspirin; Z79.899 Other long term (current) drug therapy; Z98.890 Other specified postprocedural states
CPT/HCPCS: 36415; 36430; 71020; 80048; 80053; 82728; 83550; 83605; 84484; 85025; 85027; 85610; 86850; 86900; 86901; 86920; 86922; 87040; 87804; 93005; 96361; 96365; 96366; 96376; 99285; A9270; G0378; J1956; J2916; J7030; J7040; P9016; 93010; 99217; 99284

== ENCOUNTER 2017-09-13 08:40 | Day surgery (SDC) | payer MEDICARE, OTHER ==
[~2017-09-13 08:40] MED LIST: Bupivacaine 0.5%/EPINEPHrine 1:200,000 50 ML MDV ONE; Povidone-Iodine 10% Soln 118.25 ML Bottle ONE; Vancomycin 1 GM SDV ONE
[2017-09-13] MEDS: Lactated Ringers 1,000 ML IV SCH ×2 (09:20→14:59)
[2017-09-13] MEDS ORDERED: fentaNYL 250 MCG/5 ML SDV ONE (10:09)
[2017-09-13] MEDS ORDERED: Glycopyrrolate 0.2 MG/ML 5 ML MDV ONE (10:10)
[2017-09-13] MEDS ORDERED: Dexamethasone 4 MG/ML SDV ONE (10:10)
[2017-09-13] MEDS ORDERED: Neostigmine Methylsulfate 1 MG/ML 5 ML Syringe ONE (10:10)
[2017-09-13] MEDS ORDERED: Rocuronium 50 MG/5 ML Vial ONE (10:10)
[2017-09-13] MEDS ORDERED: Propofol 200 MG/20 ML SDV ONE (10:10)
[2017-09-13] MEDS ORDERED: Succinylcholine 200 MG/10 ML MDV ONE (10:10)
[2017-09-13] MEDS ORDERED: Ondansetron 4 MG/2 ML SDV ONE (10:10)
[2017-09-13] MEDS ORDERED: Vancomycin 1 GM SDV ONE (10:18)
[2017-09-13] MEDS ORDERED: Gentamicin 40 MG/ML 2 ML Vial ONE ×3 (10:41→11:51)
[2017-09-13] MEDS ORDERED: fentaNYL 100 MCG/2 ML SDV ONE (12:21)
[2017-09-13] MEDS ORDERED: fentaNYL 100 MCG/2 ML SDV IVPUSH ONE ×2 (13:12→13:30)
[2017-09-13] MEDS ORDERED: Sennosides 8.6 MG Tab PO PRN (14:28)
[2017-09-13] MEDS ORDERED: HYDROmorphone 1 MG/ML Syringe IVPUSH PRN (14:28)
[2017-09-13] MEDS ORDERED: Sodium Chloride 0.9% 10 ML Syringe FLUSH PRN (14:28)
[2017-09-13] MEDS ORDERED: Zolpidem 5 MG Tab PO PRN (14:28)
[2017-09-13] MEDS ORDERED: Diazepam 5 MG Tab PO PRN (14:28)
[2017-09-13] MEDS ORDERED: Magnesium Hydroxide 400 MG/5 ML Susp 30 ML Cup PO PRN (14:28)
[2017-09-13] MEDS: Acetaminophen/oxyCODONE 325-5 MG Tab PO PRN ×2 (15:06→20:53)
[2017-09-13] MEDS: Ferrous Sulfate 325 MG Tab PO SCH (17:07)
[2017-09-13] MEDS ORDERED: Ertapenem 1 GM in Sodium Chloride 0.9% 100 ML IV SCH (18:00)
--- NOTE | 2017-09-13 18:13 | OR ---
DATE OF PROCEDURE: 09/13/2017 PREOPERATIVE DIAGNOSIS: Lumbar seroma. POSTOPERATIVE DIAGNOSIS: Deep lumbar wound abscess. PROCEDURE: Irrigation and debridement of skin, muscle, subcutaneous fat, deep fascia, deep musculature, bone, and spine instrumentation. FINISH GRINDER: ROMEO Bailey Physician orthotic assistant, Leila Gould NP, played an essential role in assisting in this case, helping to position the patient, retract structures as needed, as well as suturing and cutting sutures as indicated. Her presence improved patient's safety and decreased operative time. ANESTHESIA: General endotracheal intubation. FLUID: Lactated Ringer solution. ESTIMATED BLOOD LOSS: 50 mL. COMPLICATION: None. SPECIMEN: None. DISCHARGE DISPOSITION: Stable to PACU. HISTORY AND INDICATION FOR THE PROCEDURE: The patient is well known to me. We had performed a posterior lumbar fusion on him in April, approximately a month and half ago. He had a superficial abscess which was treated by Dr. Hall. This was continuing to have some serous drainage. An MRI was performed confirming the above-mentioned diagnosis. Risks and benefits of the procedure were explained to the patient. Informed consent was obtained. DETAILS OF PROCEDURE: The patient was seen preoperatively by myself and the Anesthesia staff in the preoperative holding area where the operative site was marked. He was brought to the operative suite by the Anesthesia staff where general anesthesia was administered. He was placed in a prone position on a [place] table. All extremities were found to be well padded. The bed was flexed. The patient was then prepped and draped in a sterile manner. Time-out was called identifying the correct patient, the correct procedure, the correct site, and then antibiotics had begun within appropriate period of time. I started near the area of the superficial wound that was draining serous fluid and then followed this tract down using the blade in the midline down to the deep fascia. I followed this down until and kept following with a long ball and Bovie electrocautery as not to puncture the dura. This came along the superior screws on the right side and then I was not convinced that this was in fact vaccine customer representative of the deep tract which was found on the MRI. For that reason, I continued deeper and encountered a large area with purulent fluid. It was not thick but almost purulent and serous. I then exposed this area. This was the area between the screws proximally at L3-S1. The dura was well enclosed and not visualized, had been covered with soft tissue fortunately. We then opened this up all the way and inserted the Versa-Trac retractor. We then irrigated with saline and I scraped the edges with a Otoole and curette to remove any extra mucousy type material. We then irrigated with 6.5 L of saline and then I applied iodine to the wound. We then switched our instruments and gloves and placed a clean Ioban across the incision. I then used a clean knife to enter to the Ioban. We then irrigated this iodine out and then ran 1 L of Bactisure followed by another liter and half of saline through the wound. After we run the additional saline, we did take the aerobic and anaerobic cultures. We then closed with #1 Stratafix, #2 Stratafix, and 3-0 Stratafix. I then placed a wound VAC at the inferior portion of the wound measuring approximately 3 cm x 5 cm x [address] Adaptic over the remainder of the incision and placed a sponge for an incisional wound VAC over the incision. We then flipped up the wound VAC which applied suction. Adequately, we then flipped the patient back onto his hospital bed and taken to the PACU in stable condition. Dmitry Childress DO /[id number]
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
[2017-09-13] MEDS: Colchicine 0.6 MG Tab PO SCH (20:53)
[2017-09-13] MEDS ORDERED: diphenhydrAMINE 25 MG Cap PO SCH (21:00)
[2017-09-14] MEDS: Lactated Ringers 1,000 ML IV SCH (00:55)
[2017-09-14] MEDS: Acetaminophen/oxyCODONE 325-5 MG Tab PO PRN ×2 (05:03→09:38)
[2017-09-14] MEDS ORDERED: Pantoprazole 40 MG Tab.CR PO SCH (07:30)
[2017-09-14] MEDS: Ferrous Sulfate 325 MG Tab PO SCH (08:24)
[2017-09-14] MEDS: Colchicine 0.6 MG Tab PO SCH (08:24)
[2017-09-14] MEDS ORDERED: Furosemide 20 MG Tab PO SCH (09:00)
--- NOTE | 2017-09-14 10:14 | PCM.DCSUM1 ---
Discharge Summary - Hospital Course Free Text/Narrative:: Patient is status postop day 1 of I&D of a lumbar fusion. He is doing very well. Patient's pain is under control with oral pain medication. He is continuing to manage his wound VAC at this time. Patient is requesting to go home today. - Discharge Data Discharge Date: 09/14/17 Discharge Disposition: Home, Self-Care 01 Condition: Good - Patient Summary/Data Consults: Consultations 09/13/17 14:29 OT Evaluation and Treatment [CONS] Routine Please Evaluate and Treat. OT Reason for Consult: Strengthening This query below is only for informational purposes and is not editable. PT Evaluation and Treatment [CONS] Routine Please Evaluate and Treat. PT Reason for Consult: Strengthening This query below is only for informational purposes and is not editable. - Patient Instructions Diet: Usual Diet as Tolerated Activity: Apply Ice, As Tolerated Showering/Bathing: May Shower, No Tub Bathing/Swimming Wound/Incision Care: Keep Operative Site/Wound Site Clean and Dry, Do NOT Change Dressing Notify Provider of: Fever, Increased Pain, Swelling and Redness, Drainage, Nausea and/or Vomiting - Discharge Plan Prescriptions/Med Rec: Acetaminophen/oxyCODONE [Percocet 325-5 MG] 1 tab PO Q4H PRN #90 tablet PRN Reason: Pain Diazepam [Valium] 5 mg PO Q6H PRN #20 tablet PRN Reason: Spasms Home Medications: Home Meds Aspirin [Ecotrin] 81 mg PO DAILY 05/20/17 [History] Ibuprofen 800 mg PO Q8H PRN 05/20/17 [History] Omeprazole 20 mg PO DAILY 07/10/17 [History] diphenhydrAMINE [Benadryl] 25 mg PO BEDTIME 07/10/17 [History] Furosemide [Lasix] 20 mg PO DAILY 08/13/17 [History] Colchicine [Colcrys] 0.6 mg PO BID 09/06/17 [History] Ferrous Sulfate [Iron] 1 tab PO BID 09/07/17 [History] Acetaminophen/oxyCODONE [Percocet 325-5 MG] 1 tab PO Q4H PRN #90 tablet [Rx] Diazepam [Valium] 5 mg PO Q6H PRN #20 tablet 09/14/17 [Rx] Referrals: Dmitry Childress DO [Physician] - 09/28/17 10:45 am (3 week recheck) - Discharge Summary/Plan Comment DC Time >30 min.: Yes Discharge Summary/Plan Comment: Patient will be DC'd home today. He'll continue with outpatient management of his wound VAC and his IV antibiotics. We will coordinate with Dr. Hall on treatment. He will see Dr. Sam Childress in 3 weeks. He is notify us if he has any other issues. I'll send him home on Valium and Percocet. - Patient Data Vitals - Most Recent: Last Vital Signs Temp 36.3 C 09/14/17 07:00 Pulse 83 09/14/17 07:00 Resp 18 09/14/17 07:00 BP 129/68 09/14/17 07:00 Pulse Ox 97 09/14/17 07:00 Weight - Most Recent: 225 lb I&O - Last 24 hours: Intake & Output 09/13/17 09/14/17 09/14/17 22:59 06:59 14:59 Intake Total 720 1811 480 Output Total 275 1450 Balance 445 361 480 SEBASTIEN Results - Last 24 hrs: Microbiology 09/13/17 12:18 Gram Stain - Final Back - Middle Wound Culture - Preliminary NO GROWTH AFTER 1 DAY Anaerobic Culture - Preliminary NO GROWTH AFTER 1 DAY 09/13/17 12:01 Gram Stain - Final Back - Middle Wound Culture - Preliminary NO GROWTH AFTER 1 DAY Anaerobic Culture - Preliminary NO GROWTH AFTER 1 DAY Med Orders - Current: Current Medications Colchicine (Colcrys) 0.6 mg PO BID [facility] Last Admin: 09/14/17 08:24 Dose: 0.6 mg Diazepam (Valium.) 5 mg PO Q6H PRN PRN Reason: Spasms Diphenhydramine HCl (Benadryl) 25 mg PO BEDTIME [facility] Last Admin: 09/13/17 20:53 Dose: 25 mg Ferrous Sulfate (Ferrous Sulfate) 325 mg PO BIDMEALS [facility] Last Admin: 09/14/17 08:24 Dose: 325 mg Furosemide (Lasix) 20 mg PO DAILY [facility] Last Admin: 09/14/17 08:24 Dose: Not Given Hydromorphone HCl (Dilaudid) 1 mg IVPUSH Q2H PRN PRN Reason: Pain Lactated Ringer's (Ringers, Lactated) 1,000 mls @ 100 mls/hr IV ASDIRECTED [facility] Last Admin: 09/14/17 00:55 Dose: 100 mls/hr Ertapenem 1 gm/ Sodium (Chloride) 100 mls @ 200 mls/hr IV Q24H [facility] Last Admin: 09/13/17 17:07 Dose: 200 mls/hr Magnesium Hydroxide (Milk Of Magnesia) 30 ml PO DAILY PRN PRN Reason: Constipation Oxycodone/Acetaminophen (Percocet 325-5 Mg) 1 tab PO Q4H PRN PRN Reason: Pain Last Admin: 09/14/17 09:38 Dose: 1 tab Pantoprazole Sodium (Protonix) 40 mg PO ACBREAKFAST [facility] Last Admin: 09/14/17 08:24 Dose: 40 mg Senna (Senna) 8.6 mg PO BID PRN PRN Reason: Constipation Sodium Chloride (Saline Flush) 10 ml FLUSH ASDIRECTED PRN PRN Reason: Keep Vein Open Zolpidem Tartrate (Ambien) 5 mg PO BEDTIME PRN PRN Reason: Sleep Discontinued Medications Bupivacaine HCl/Epinephrine Bitart (Marcaine 0.5%/Epinephrine 1:200,000) Confirm Administered Dose 50 ml .ROUTE .STK-MED ONE Stop: 09/13/17 07:58 Last Admin: 09/13/17 11:30 Dose: 20 ml Dexamethasone (Dexamethasone) Confirm Administered Dose 4 mg .ROUTE .STK-MED ONE Stop: 09/13/17 10:11 Fentanyl (Sublimaze) Confirm Administered Dose 250 mcg .ROUTE .STK-MED ONE Stop: 09/13/17 10:10 Fentanyl (Sublimaze) Confirm Administered Dose 100 mcg .ROUTE .STK-MED ONE Stop: 09/13/17 12:22 Fentanyl (Sublimaze) 100 mcg IVPUSH ONETIME ONE Stop: 09/13/17 13:13 Last Admin: 09/13/17 15:40 Dose: Not Given Fentanyl (Sublimaze) 100 mcg IVPUSH ONETIME ONE Stop: 09/13/17 13:31 Last Admin: 09/13/17 13:23 Dose: 100 mcg Gentamicin Sulfate (Gentamicin) Confirm Administered Dose 240 mg .ROUTE .STK- MED ONE Stop: 09/13/17 10:42 Last Admin: 09/13/17 11:30 Dose: 720 mg Gentamicin Sulfate (Gentamicin) Confirm Administered Dose 240 mg .ROUTE .STK- MED ONE Stop: 09/13/17 10:57 Gentamicin Sulfate (Gentamicin) Confirm Administered Dose 240 mg .ROUTE .STK- MED ONE Stop: 09/13/17 11:52 Glycopyrrolate (Robinul) Confirm Administered Dose 1 mg .ROUTE .STK-MED ONE Stop: 09/13/17 10:11 Vancomycin HCl 1 gm/ Sodium (Chloride) 250 mls @ 167 mls/hr IV ONETIME ONE Stop: 09/13/17 11:59 Last Admin: 09/13/17 10:50 Dose: 167 mls/hr Neostigmine Methylsulfate (Neostigmine) Confirm Administered Dose 5 mg .ROUTE .STK-MED ONE Stop: 09/13/17 10:11 Ondansetron HCl (Zofran) Confirm Administered Dose 4 mg .ROUTE .STK-MED ONE Stop: 09/13/17 10:11 Povidone Iodine (Betadine 10% Soln) Confirm Administered Dose 1 ml .ROUTE .STK- MED ONE Stop: 09/13/17 07:58 Last Admin: 09/13/17 11:29 Dose: 60 ml Propofol (Diprivan 20 Ml) Confirm Administered Dose 200 mg .ROUTE .STK-MED ONE Stop: 09/13/17 10:11 Rocuronium [place] (Zemuron) Confirm Administered Dose 50 mg .ROUTE .STK-MED ONE Stop: 09/13/17 10:11 Succinylcholine Chloride (Quelicin) Confirm Administered Dose 200 mg .ROUTE .STK -MED ONE Stop: 09/13/17 10:11 Vancomycin HCl (Vancomycin) Confirm Administered Dose 1 gm .ROUTE .STK-MED ONE Stop: 09/13/17 07:58 Last Admin: 09/13/17 11:29 Dose: 1 gm Vancomycin HCl (Vancomycin) Confirm Administered Dose 1 gm .ROUTE .STK-MED ONE Stop: 09/13/17 10:19 Last Admin: 09/13/17 11:29 Dose: 1 gm - Exam General: Reports: Alert, Oriented Back Exam: Reports: Normal Inspection Extremities: Normal Inspection, Normal Range of Motion, No Pedal Edema, Normal Capillary Refill Skin: Reports: Warm, Dry, Intact Wound/Incisions: Reports: Healing Well, Dressing Dry and Intact Neurological: Reports: No New Focal Deficit, Normal Gait, Strength Equal Bilateral, Reflexes Equal Bilateral Psy/Mental Status: Reports: Alert *Q Meaningful Use (DIS) - VTE *Q VTE Criteria *Q: - Stroke *Q Stroke Criteria *Q: - AMI *Q AMI Criteria *Q:
[2017-09-14 12:08] VITALS: BP 111/63
[2017-09-14] MEDS ORDERED: Ertapenem 1 GM in Sodium Chloride 0.9% 100 ML IV ONE (14:00)
== END 2017-09-14 14:03 | disposition home or self-care (01) ==
LOC: JP.SDS 08:40 → JP.MS 14:28 → JP.SDS 09-14 14:03
PROVIDERS: ATTEND Orthopaedic Surgery
DX: M96.843 Postprocedural seroma of a musculoskeletal structure following other procedure (principal); Z88.1 Allergy status to other antibiotic agents
CPT/HCPCS: 11044; 36415; 80053; 85027; 87070; 87075; 87077; 87186; 87205; 93005; 97110; 97112; 97162; 97165; 97530; A9270; J1100; J1335; J1580; J2405; J2704; J2710; J3010; J3370; J7030; J7050; J7120; 22015; 93010; J0330

== ENCOUNTER 2017-09-19 19:04 | Emergency (ER) | payer MEDICARE, OTHER ==
[2017-09-19 19:19] VITALS: BP 139/78
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
== END 2017-09-19 20:06 | disposition home or self-care (01) ==
LOC: JP.ED 19:04
DX: L24.5 Irritant contact dermatitis due to other chemical products (principal); T50.905A Adverse effect of unspecified drugs, medicaments and biological substances, initial encounter
CPT/HCPCS: 99283

== ENCOUNTER 2021-09-16 23:18 | Emergency (ER) | payer MEDICARE, MEDICAID ==
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
[2021-09-17] MEDS ORDERED: Aspirin 81 MG Tab.Chew PO ONE (01:11)
[2021-09-17] MEDS ORDERED: Heparin Sodium 5,000 Units/ML Vial IVPUSH ONE (01:28)
[2021-09-17] MEDS ORDERED: Heparin Sodium/D5W 25,000 UNITS/500 ML BAG IV SCH (01:30)
[2021-09-17] MEDS: HYDROmorphone 0.5 MG/0.5 ML Syringe IVPUSH PRN ×2 (07:55→13:19)
[2021-09-17] MEDS ORDERED: Propofol 200 MG/20 ML SDV IVPUSH ONE (17:49)
[2021-09-17] MEDS ORDERED: Sodium Chloride 0.9% 1,000 ML IV SCH (18:00)
--- NOTE | 2021-09-17 18:35 | PCM.PRNOTE ---
- Free Text/Narrative Note: Date of service: 09/17/2021 Proposed procedure: Synchronized cardioversion Preprocedure diagnosis: Paroxysmal atrial fibrillation with intermittent rapid ventricular response Post procedure diagnosis: Paroxysmal atrial fibrillation with intermittent rapid ventricular response Indication for procedure: Misael was evaluated today for management atrial fibrillation with symptoms and intermittent rapid ventricular response. Synchronized cardioversion was recommended as a primary treatment. Description of the procedure: [facility] is currently located [facility]. We have reviewed the potential risks of electrical cardioversion including but not limited to: Superficial skin friend, ineffective treatment, other arrhythmias, reaction to anesthesia medications or potentially asystole. The benefits of the procedure have also been reviewed. At this time the patient wishes to proceed with electrical cardioversion. All necessary pre-procedure information and paperwork has been provided and completed, respectively. The patient was connected to cardioversion pads and monitoring equipment per protocol. Prior to the procedure, a timeout was held with nursing and anesthesia present to confirm the right patient and right procedure. Once appropriate anesthesia was applied the machine was charged to 200 Joules and a synchronized electrical shock was applied. The patient was successfully converted to normal sinus rhythm based on telemetry monitoring. They will remain in their current location until anesthesia has dissipated and the patient is more awake and alert. There were no immediate complications noted from the procedure. Post procedure EKG did show sinus rhythm. Thomas Angulo M.D.
[2021-09-17 19:22] VITALS: BP 146/87; PULSE 88
== END 2021-09-17 19:54 | disposition other institution (70) ==
LOC: JP.ED 23:18
DX: I21.4 Non-ST elevation (NSTEMI) myocardial infarction (principal); I48.91 Unspecified atrial fibrillation; I25.2 Old myocardial infarction; K21.9 Gastro-esophageal reflux disease without esophagitis; M10.9 Gout, unspecified; Z88.1 Allergy status to other antibiotic agents; Z79.82 Long term (current) use of aspirin; Z79.899 Other long term (current) drug therapy; Z20.822 Contact with and (suspected) exposure to COVID-19
CPT/HCPCS: 36415; 80053; 84484; 85025; 85730; 92960; 93005; 96365; 96366; 96375; 96376; 99152; 99285; A9270; J1170; J1644; U0002

== ENCOUNTER 2022-04-24 12:29 | Emergency (ER) | payer MEDICARE, MEDICAID ==
[2022-04-24 12:46] VITALS: BP 182/89; PULSE 63
== END 2022-04-24 13:37 | disposition home or self-care (01) ==
LOC: JP.ED 12:29
DX: S01.81XA Laceration without foreign body of other part of head, initial encounter (principal); I48.91 Unspecified atrial fibrillation; I25.10 Atherosclerotic heart disease of native coronary artery without angina pectoris; I25.2 Old myocardial infarction; K21.9 Gastro-esophageal reflux disease without esophagitis; M10.9 Gout, unspecified; M19.90 Unspecified osteoarthritis, unspecified site; Z88.1 Allergy status to other antibiotic agents; Z79.82 Long term (current) use of aspirin; Z79.01 Long term (current) use of anticoagulants; Z87.891 Personal history of nicotine dependence; Y99.0 Civilian activity done for income or pay; Z79.899 Other long term (current) drug therapy; W26.8XXA Contact with other sharp object(s), not elsewhere classified, initial encounter
CPT/HCPCS: 12011; 99281; 99283

== ENCOUNTER 2022-08-24 18:43 | Emergency (ER) | payer MEDICARE, MEDICAID ==
[2022-08-24 18:58] VITALS: PULSE 56
[2022-08-24] MEDS ORDERED: Morphine 2 MG/ML SYRINGE ONE (18:58)
[2022-08-24] MEDS ORDERED: Aspirin 325 MG Tab.EC PO ONE (19:02)
[2022-08-24] MEDS ORDERED: Aspirin 81 MG Tab.EC PO ONE (19:02)
[2022-08-24] MEDS ORDERED: Sodium Chloride 0.9% 10 ML Syringe FLUSH PRN (19:02)
[2022-08-24] MEDS ORDERED: Ticagrelor 90 MG Tab PO ONE (19:02)
[2022-08-24] MEDS ORDERED: Morphine 2 MG/ML SYRINGE IVPUSH PRN (19:02)
[2022-08-24] MEDS ORDERED: Heparin Sodium 5,000 Units/ML Vial IVPUSH ONE (19:02)
[2022-08-24] MEDS ORDERED: Ondansetron 4 MG/2 ML SDV IVPUSH ONE (19:02)
[2022-08-24] MEDS ORDERED: Heparin Sodium/D5W 25,000 UNITS/500 ML BAG IV SCH (19:15)
[2022-08-24] MEDS ORDERED: DOPamine/Dextrose 5%-Water 400 MG/250 ML BAG IV SCH (19:15)
[2022-08-24] MEDS ORDERED: Aspirin 81 MG Tab.Chew PO SCH (19:15)
[2022-08-24] MEDS ORDERED: Nitroglycerin 0.4 MG Tab.SL SL ONE (19:17)
[2022-08-24 19:18] VITALS: BP 127/72
[2022-08-24 19:22] LABS: TROPONIN I HIGH SENSITIVITY 139.9 pg/mL (<=60.3)
== END 2022-08-24 19:40 ==
LOC: JP.ED 18:43
DX: I21.3 ST elevation (STEMI) myocardial infarction of unspecified site (principal); I25.10 Atherosclerotic heart disease of native coronary artery without angina pectoris; I25.2 Old myocardial infarction; Z88.1 Allergy status to other antibiotic agents; Z79.82 Long term (current) use of aspirin; Z79.899 Other long term (current) drug therapy
CPT/HCPCS: 36415; 80048; 84484; 85025; 93005; 96365; 96368; 96375; 96376; 99285; A9270; J1265; J1644; J2270; J2405; J3490

== ENCOUNTER 2022-09-02 21:17 | Emergency (ER) | payer MEDICARE, MEDICAID ==
[2022-09-02 21:34] VITALS: BP 145/70; PULSE 66
== END 2022-09-02 23:29 | disposition home or self-care (01) ==
LOC: JP.ED 21:17
DX: M79.81 Nontraumatic hematoma of soft tissue (principal); I48.91 Unspecified atrial fibrillation; I25.10 Atherosclerotic heart disease of native coronary artery without angina pectoris; E78.00 Pure hypercholesterolemia, unspecified; I10 Essential (primary) hypertension; I25.2 Old myocardial infarction; K21.9 Gastro-esophageal reflux disease without esophagitis; M10.9 Gout, unspecified; Z88.1 Allergy status to other antibiotic agents; Z79.82 Long term (current) use of aspirin; Z79.01 Long term (current) use of anticoagulants; Z79.899 Other long term (current) drug therapy
CPT/HCPCS: 36415; 80048; 85025; 85379; 99283

== ENCOUNTER 2022-10-29 22:54 | Emergency (ER) | payer MEDICARE, MEDICAID ==
[2022-10-29] MEDS ORDERED: Diltiazem 25 MG/5 ML SDV IVPUSH ONE (23:31)
[2022-10-29 23:42] LABS: ESTIMATED GFR 75 mL/min (>60)
[2022-10-29 23:43] LABS: TROPONIN I HIGH SENSITIVITY 436.3 pg/mL (<=60.3)
[2022-10-29] MEDS ORDERED: Sodium Chloride 0.9% 1,000 ML IV SCH (23:45)
[2022-10-30 01:35] VITALS: BP 114/75; PULSE 105
== END 2022-10-30 01:25 ==
LOC: EEVIPCON 22:54 → JP.ED 22:54
DX: I48.91 Unspecified atrial fibrillation (principal); R79.89 Other specified abnormal findings of blood chemistry; I25.10 Atherosclerotic heart disease of native coronary artery without angina pectoris; E78.00 Pure hypercholesterolemia, unspecified; I10 Essential (primary) hypertension; Z88.1 Allergy status to other antibiotic agents; Z79.82 Long term (current) use of aspirin; Z79.899 Other long term (current) drug therapy; Z20.822 Contact with and (suspected) exposure to COVID-19
CPT/HCPCS: 36415; 80053; 81001; 83735; 84484; 85025; 96361; 96374; 99285; J3490; J7030; U0002

== ENCOUNTER 2023-09-14 11:10 | Emergency (ER) | payer MEDICARE, MEDICAID ==
[2023-09-14 11:16] VITALS: BP 140/61; PULSE 64
[2023-09-14] MEDS ORDERED: Lidocaine 1% 10 ML MDV INJECT ONE (11:48)
[2023-09-14] MEDS ORDERED: Diphtheria,Pertussis(Acell),Tetanus Vaccine 0.5 ML Syringe IM ONE (11:54)
== END 2023-09-14 13:01 | disposition home or self-care (01) ==
LOC: JP.ED 11:10
DX: S61.111A Laceration without foreign body of right thumb with damage to nail, initial encounter (principal); I25.10 Atherosclerotic heart disease of native coronary artery without angina pectoris; I10 Essential (primary) hypertension; I25.2 Old myocardial infarction; E78.00 Pure hypercholesterolemia, unspecified; K21.9 Gastro-esophageal reflux disease without esophagitis; Z87.891 Personal history of nicotine dependence; Z79.899 Other long term (current) drug therapy; Z88.1 Allergy status to other antibiotic agents; Z23 Encounter for immunization; Z79.01 Long term (current) use of anticoagulants; W31.2XXA Contact with powered woodworking and forming machines, initial encounter
CPT/HCPCS: 12002; 13132; 90471; 90715; 99282-25; 99283